=== PATIENT | female | born 1950 | race Asian ===

== ENCOUNTER 2017-09-25 07:31 | Day surgery (SDC) | payer OTHER, SELFPAY ==
[2017-09-25] VITALS (10 sets, daily range): BP systolic 69–177; BP diastolic 40–78; PULSE 54–65; RESP 10–18; TEMP 36.2–37.1; O2SAT 93–100; BMI 21.9
--- NOTE | 2017-09-25 | PATH_ITS ---
[facility] Accession Number: [id number] . 01 Material submitted: . PART A: DUODENUM PART B: ANTRUM PART C: GE JUNCTION . 02 Diagnosis: A. Duodenum, Biopsy: Duodenal mucosa with no diagnostic abnormality. Negative for active inflammation, features of sprue, dysplasia or malignancy. . B. Antrum, Biopsy: Gastric antral mucosa with features of reactive gastropathy. No evidence of Helicobacter organisms on H/E stain. Negative for intestinal metaplasia, dysplasia or malignancy. . C. Gastroesophageal Junction, Biopsy: Squamocolumnar junctional mucosa with focal specialized intestinal metaplasia; please see comment. Negative for dysplasia or malignancy. [facility]/09/26/2017 . 02 Comment: Part C) The findings in the gastroesophageal junction biopsy would be consistent with Patel's esophagus in the appropriate endoscopic setting. . 02 Electronically signed: . Wilfredo Maloney MD, PhD, Pathologist NPI- [id number] . 01 Gross description: . Received are three formalin-filled containers, each labeled with the patient's name: . A. In a container labeled duodenum, the specimen consists of a 0.2 cm portion of tissue, entirely submitted in cassette A. B. In a container labeled antrum, the specimen consists of two 0.2 cm portions of tissue, entirely submitted in cassette B. C. In a container labeled GE junction, the specimen consists of four 0.1-0.3 cm portions of tissue, entirely submitted in cassette C. ([id number]) /FRR . 02 Pathologist provided ICD-10: K22.70 . 02 CPT . 478808, 075190, [id number] Performed at: [address] [facility], [place] [id number] MD Rodri Bahena MD Phone: [phone] Performed at: 02 [facility] [address] [place] [id number] MD Tariq Christiansen MD Phone: [phone]
[2017-09-25] MEDS: SODIUM CHLORIDE 0.9% 1,000 ML 200 ML IV (08:52)
--- NOTE | 2017-09-25 09:07 | PM.PREOP ---
Pre-operative Note Interval Note Pre-op Check: History & Physical Reviewed by Physician ASA Class (for procedural sedation): II
[2017-09-25] MEDS: LIDOCAINE 4% SOLN 50 ML 20 ML TOP (09:17)
[2017-09-25] MEDS: TETRACAINE/BENZOCAINE/BUTAMBEN (CETACAINE) BOTTLE 1 SPRAY TOP (09:17)
[2017-09-25] MEDS: MIDAZOLAM 5 MG/5 ML VIAL IV (09:46)
[2017-09-25] MEDS: fentaNYL 250 MCG/5 ML INJ IV (09:46)
--- NOTE | 2017-09-25 10:04 | PM.OP.1 ---
Operative Date/Time/Diagnoses - Date of procedure: 09/25/17 Time of procedure: 10:06 Pre-op diagnosis: Worsening reflux symptoms Personal history of colon polyps Post-op diagnosis: same Procedure & Clinicians Procedure: Esophagogastroduodenoscopies with biopsies and colonoscopy to the cecum Same procedure as scheduled: Yes Indications: Last colonoscopy 12 years ago Surgeon: Jennifer Hagen Click Yes if Unassisted: Yes Anesthesia Type: Sedation (Fentanyl and Versed) Operative Notes Findings: 1. Normal duodenal mucosa 2. Mild antral gastritis 3. Incompetent GE junction with a 1 cm sliding hiatal hernia 4. GE junction at 39 cm from the incisors 5. Excellent prep 6. No polyps or mass lesions 7. No AV malformations 8. Mild diverticulitis noted at the junction of the descending and sigmoid colon 9. Grade 1 internal hemorrhoids Closure Type: not applicable Specimen(s): other (Cold forceps biopsies of the duodenum, antrum, and GE junction) Estimated Blood Loss (mL): 2 Procedure in detail: After obtaining informed consent, the patient was brought to the GI suite and placed in the left lateral decubitus position on the examination table. After placement of appropriate monitors, the patient was given incremental doses of Versed and Fentanyl until an appropriate level of sedation was achieved. A time out was held per SCOAP protocol. We began with EGD. A bite block was gently placed between the patient's teeth. The endoscope was lubricated and then passed into the patient's posterior oropharynx. The esophagus was cannulated under direct vision and the scope was passed to the second portion of the duodenum without difficulty. The scope was then withdrawn with careful examination of all areas of the upper GI tract and mucosa. In the stomach, the instrument was retroflexed and the GE junction examined. The scope was straightened and the procedure continued with examination of the remainder of the upper GI tract. Findings are noted above. Air was aspirated from the stomach and the endoscope gently removed from the esophagus. The examination table was turned and we continued with the colonoscopy. A digital rectal examination was performed and did not reveal any masses or obstructing lesions. The colonoscope was gently passed into the patient's anus and the entire colon navigated to the level of the cecum with minimal difficulty. Once in the cecum, the scope was withdrawn being sure to go before and beyond all mucosal folds and prominences and get an excellent examination. The findings are noted above. At the level of the rectal vault, the scope was retroflexed and the internal anal canal was examined. The scope was straightened and air aspirated from the colon. The instrument was removed from the patient's body and the procedure was concluded. The patient was allowed to awaken from sedation without difficulty and taken to the post-anesthesia care unit in good condition. Complications: none Condition: stable Disposition: PACU Plan for aftercare: 1. Discharge to home 2. We will contact you with pathology results and recommendations.
--- NOTE | 2017-09-25 11:24 | SUR.PHASEII ---
pt drowsy, no co's , friend at side at 102
--- NOTE | 2017-09-25 11:26 | SUR.PHASEII ---
pt awake , taking fliuds , no co's
== END 2017-09-25 11:50 ==
LOC: ENDO 07:32
PROVIDERS: Family Provider Physician Assistant; PCP Physician Assistant; Visit Provider Surgery
PROC: 0DJ08ZZ Inspection of Upper Intestinal Tract, Via Natural or Artificial Opening Endoscopic (ICD-10-PCS; CPT 43235; principal; 2017-09-25 08:45)
PROC: 0DJD8ZZ Inspection of Lower Intestinal Tract, Via Natural or Artificial Opening Endoscopic (ICD-10-PCS; CPT 45378; 2017-09-25 08:45)
DX: Z86.010 Personal history of colon polyps (principal); K21.9 Gastro-esophageal reflux disease without esophagitis; K22.70 Barrett's esophagus without dysplasia; K29.70 Gastritis, unspecified, without bleeding; K44.9 Diaphragmatic hernia without obstruction or gangrene; K57.30 Diverticulosis of large intestine without perforation or abscess without bleeding; K64.0 First degree hemorrhoids
CPT/HCPCS: 43239; 45378; J2250; J3010

== ENCOUNTER → 2018-01-08 11:03 | Outpatient (CLI) | payer OTHER, SELFPAY ==
[2018-01-08 12:38] LABS: Alanine Aminotransferase 24 IU/L (9-52); Albumin 4.4 g/dL (3.5-5.0); Albumin Globulin Ratio 1.4 (1.0-2.8); Alkaline Phosphatase 64 U/L (38-126); Aspartate Aminotransferase 20 IU/L (14-36); Bilirubin Total 0.9 mg/dL (0.2-1.3); Blood Urea Nitrogen 14 mg/dL (7-17); Calcium 9.1 mg/dL (8.4-10.2); Carbon Dioxide 30 mmol/L (22-32); Chloride 104 mmol/L (98-107); Cholesterol 201 mg/dL (140-199); Estimated Glomerular Filt Rate > 60.0 mL/min (>60); Globulin 3.1 g/dL (1.7-4.1); Glucose 89 mg/dL (80-110); HDL Cholesterol 70 mg/dL (40-60); HEMOLYSIS < 15 (0-50); LDL Cholesterol Calculated 116 mg/dL (<100); Potassium 4.2 mmol/L (3.4-5.1); Sodium 144 mmol/L (137-145); Total Protein 7.5 g/dL (6.3-8.2); Triglycerides 74 mg/dL (35-150)
[2018-01-08 12:46] LABS: Free T3, Triiodothyronine Free 2.95 pg/mL (2.77-5.27); Free T4, Direct Thyroxine 1.26 ng/dL (0.78-2.19)
[2018-01-08 12:59] LABS: Thyroid Stimulating Hormone 1.68 uIU/mL (0.47-4.68)
== END ==
PROVIDERS: PCP Physician Assistant; Visit Provider Physician Assistant
DX: E03.9 Hypothyroidism, unspecified (principal); E78.5 Hyperlipidemia, unspecified
CPT/HCPCS: 36415; 80053; 80061; 84439; 84443; 84481

== ENCOUNTER → 2018-01-19 10:42 | Outpatient (CLI) | payer OTHER, SELFPAY ==
--- NOTE | 2018-01-19 10:45 | DI.MG.S_ITS ---
BILATERAL DIGITAL SCREENING MAMMOGRAM 3D/2D WITH CAD: 01/19/2018 CLINICAL: Routine screening. Comparison is made to exams dated: 01/18/2016 mammogram, 01/08/2016 mammogram, and 03/03/2014 mammogram - [facility]. There are scattered fibroglandular elements in both breasts. Current study was also evaluated with a Computer Aided Detection (CAD) system. There are benign post operative findings in the right breast. No significant masses, calcifications, or other findings are seen in either breast. There has been no significant interval change. IMPRESSION: There is no mammographic evidence of malignancy. A 1 year screening mammogram is recommended.(01/20/2019) This exam was interpreted at Station ID: [id number]. NOTE: For mammograms, a report in lay terms will be sent to the patient. Approximately 15% of breast malignancies will not be visualized mammographically. In the management of a palpable breast mass, a negative mammogram must not discourage biopsy of a clinically suspicious lesion. Electronically Signed By: Lorelei dillon/chip:01/19/2018 13:22:33 letter sent: Normal Exam ACR BI-RADS Category 2: Benign Finding(s) 3342F
== END ==
PROVIDERS: Family Provider Physician Assistant; PCP Physician Assistant; Visit Provider Physician Assistant
DX: Z12.31 Encounter for screening mammogram for malignant neoplasm of breast (principal)
CPT/HCPCS: 77063; 77067

== ENCOUNTER → 2018-01-21 09:37 | Outpatient (CLI) | payer OTHER, SELFPAY ==
--- NOTE | 2018-01-21 09:38 | DI.RAD.S_ITS ---
This blank DEXA report has been sent in error by the PACS system. The correct and complete report will be forthcoming in 1-2 days. Thank you for your patience and understanding. Dictated by: Laurita Choi MD, PhD on 01/21/2018 at 11:13 Approved by: Laurita Choi MD, PhD on 01/21/2018 at 11:13
== END ==
PROVIDERS: PCP Physician Assistant; Visit Provider Physician Assistant
DX: M85.852 Other specified disorders of bone density and structure, left thigh (principal); Z78.0 Asymptomatic menopausal state; E28.39 Other primary ovarian failure; Z90.722 Acquired absence of ovaries, bilateral
CPT/HCPCS: 77080

== ENCOUNTER → 2018-02-24 11:21 | Outpatient (CLI) | payer OTHER, SELFPAY ==
[2018-02-24 14:56] LABS: Vitamin D 25 Hydroxy (D3) 17.2 ng/mL (30.0-100.0)
== END ==
PROVIDERS: PCP Physician Assistant; Visit Provider Physician Assistant
DX: M81.0 Age-related osteoporosis without current pathological fracture (principal); Z01.84 Encounter for antibody response examination
CPT/HCPCS: 36415; 82306; 86787

== ENCOUNTER → 2018-08-04 12:32 | Outpatient (CLI) | payer OTHER, SELFPAY ==
[2018-08-04 21:13] LABS: Vitamin D 25 Hydroxy (D3) 26.5 ng/mL (30.0-100.0)
== END ==
PROVIDERS: PCP Physician Assistant; Visit Provider Physician Assistant
DX: E55.9 Vitamin D deficiency, unspecified (principal); M81.0 Age-related osteoporosis without current pathological fracture
CPT/HCPCS: 82306

== ENCOUNTER → 2018-10-29 11:24 | Outpatient (CLI) | payer OTHER, SELFPAY ==
--- NOTE | 2018-10-29 11:26 | DI.RAD.S_ITS ---
PROCEDURE: XR WRIST RT MIN 3V INDICATIONS: Bony deformity on medial side of distal radius TECHNIQUE: 4 views of the wrist were acquired. COMPARISON: None. FINDINGS: Bones: No fractures or dislocations. No suspicious bony lesions. There is mild degenerative joint disease at the triscaphe joint and first carpometacarpal joint. Scaphoid view: Scaphoid appears intact. Soft tissues: No suspicious soft tissue calcifications. IMPRESSION: No acute bony abnormalities. Mild degenerative disease. Dictated by: Bridget Main M.D. on 10/29/2018 at 17:33 Approved by: Bridget Main M.D. on 10/29/2018 at 17:36
[2018-10-29 13:35] LABS: Alanine Aminotransferase 21 IU/L (9-52); Albumin 4.5 g/dL (3.5-5.0); Albumin Globulin Ratio 1.5 (1.0-2.8); Alkaline Phosphatase 67 U/L (38-126); Aspartate Aminotransferase 20 IU/L (14-36); Bilirubin Total 0.7 mg/dL (0.2-1.3); Blood Urea Nitrogen 15 mg/dL (7-17); Calcium 9.6 mg/dL (8.4-10.2); Carbon Dioxide 29 mmol/L (22-32); Chloride 103 mmol/L (98-107); Cholesterol 241 mg/dL (140-199); Estimated Glomerular Filt Rate > 60.0 mL/min (>60); Glucose 92 mg/dL (80-110); HDL Cholesterol 72 mg/dL (40-60); HEMOLYSIS < 15 (0-50); LDL Cholesterol Calculated 146 mg/dL (<100); Potassium 4.5 mmol/L (3.4-5.1); Sodium 142 mmol/L (137-145); Total Protein 7.5 g/dL (6.3-8.2); Triglycerides 114 mg/dL (35-150)
[2018-10-29 13:59] LABS: Thyroid Stimulating Hormone 2.12 uIU/mL (0.47-4.68)
[2018-10-29 14:24] LABS: Vitamin B12 781 pg/mL (239-931)
== END ==
PROVIDERS: PCP Physician Assistant; Visit Provider Physician Assistant
DX: R22.31 Localized swelling, mass and lump, right upper limb (principal); E78.5 Hyperlipidemia, unspecified; M81.0 Age-related osteoporosis without current pathological fracture; R63.4 Abnormal weight loss; K21.9 Gastro-esophageal reflux disease without esophagitis; R26.89 Other abnormalities of gait and mobility
CPT/HCPCS: 36415; 73110; 80053; 80061; 82607; 84443

== ENCOUNTER → 2018-11-17 15:11 | Outpatient (CLI) | payer OTHER, SELFPAY ==
--- NOTE | 2018-11-17 15:14 | DI.RAD.S_ITS ---
PROCEDURE: XR KNEE RT 3V INDICATIONS: Right knee pain TECHNIQUE: 3 views of the knee were acquired. COMPARISON: [facility], , KNEE 3V LEFT, 12/03/2010, 10:28. FINDINGS: Bones: No fractures or dislocations. No suspicious bony lesions. An enthesophyte at the quadriceps tendon insertion is noted. Soft tissues: No joint effusion. No suspicious soft tissue calcifications. IMPRESSION: No acute osseous abnormality of the right knee. Dictated by: Kings Mccoy M.D. on 11/17/2018 at 14:46 Approved by: Kings Mccoy M.D. on 11/17/2018 at 14:49
[2018-11-17 16:55] LABS: D Dimer 1980 ng/mL (<230)
== END ==
PROVIDERS: PCP Physician Assistant; Visit Provider Physician Assistant
DX: M25.561 Pain in right knee (principal); R60.0 Localized edema
CPT/HCPCS: 73562; 85379

== ENCOUNTER 2018-11-17 17:32 | Emergency (ER) | payer OTHER, SELFPAY ==
[2018-11-17 17:33] VITALS: BP 153/73; PULSE 86; RESP 14; TEMP 37.4; O2SAT 97; BMI 20.1
--- NOTE | 2018-11-17 17:45 | DI.US.S_ITS ---
PROCEDURE: US PERIPH VENOUS LOW EXTREM RT INDICATIONS: R popiteal pain and swelling x 4 months. elevated D-dimer TECHNIQUE: Real-time imaging, as well as color and pulse Doppler interrogation, were performed of the lower extremity deep veins from the inguinal ligament to the popliteal fossa. COMPARISON: None. FINDINGS: The common femoral, femoral and popliteal veins are normally compressible, and free of intraluminal thrombus. Color and pulse Doppler demonstrate normal phasic intraluminal flow. There is normal augmentation response to distal compression maneuver. IMPRESSION: No deep venous thrombosis in the right lower extremity. Dictated by: Bridget Main M.D. on 11/17/2018 at 19:09 Approved by: Bridget Main M.D. on 11/17/2018 at 19:10
--- NOTE | 2018-11-17 18:02 | ED.LOWEXIN ---
HPI - Extremity Injury (Lower) <KATHRYN Oropeza - Last Filed: 11/17/18 21:33> General Chief Complaint: Extremity Injury, Lower Stated Complaint: ABNORMAL LABS Time Seen by Provider: 11/17/18 17:35 Source: patient Mode of arrival: ambulatory Limitations: no limitations History of Present Illness HPI Narrative: 68-year-old healthy female presents emergency department today after being referred from the walk-in clinic for an elevated D-dimer. She states she presented to the walk-in clinic for right knee pain that has increased over the past few days, this initially started from a fall to her knee in August when her dog was attacked. She states her knee has been sore for a while but today it has been increasingly worse, she describes her pain as a 8/10 dull pain that is worse with bending her knee and worse with walking. She denies any fevers, chills, chest pain, shortness of breath, palpitations, abdominal pain, nausea, vomiting, or significant swelling. She denies any recent long trips or recent flights. She denies any history of blood clots. Related Data Home Medications Medication Instructions Recorded Confirmed Calcium/Vitamin D3 Gummies 2 ea PO DAILY 10/29/18 11/17/18 Red Yeast Rice 1 tab PO DAILY 10/29/18 11/17/18 ranitidine 150 mg tablet 150 mg PO DAILY PRN 10/29/18 11/17/18 turmeric 400 mg capsule 400 mg PO DAILY cap 10/29/18 11/17/18 Allergies Allergy/AdvReac Type Severity Reaction Status Date / Time ciprofloxacin [From CIPRO] Allergy Mild red ears Verified 11/17/18 17:41 iodine [IODINE] Allergy Mild itch Verified 11/17/18 17:41 Sulfa (Sulfonamide Allergy Mild red ears Verified 11/17/18 17:41 Antibiotics) [SULFA (SULFONAMIDE ANTIBIOTICS)] Penicillins Allergy Unknown Verified 11/17/18 17:41 ibuprofen [IBUPROFEN] AdvReac Severe CHEST PAIN Verified 11/17/18 17:41 aspirin AdvReac Intermediate Upset Verified 11/17/18 17:41 stomach Review of Systems <KATHRYN Oropeza - Last Filed: 11/17/18 21:33> Review of Systems REVIEW OF SYSTEMS: GENERAL: Denies fever or chills. HENT: No head trauma. EYES: No double vision or vision loss. CARDIOVASCULAR: No chest pain or syncope. RESPIRATORY: No shortness of breath or cough. GASTROINTESTINAL: No nausea, vomiting, diarrhea, or constipation. GENITOURINARY: No flank pain or dysuria. MUSCULOSKELETAL: Complains of left knee pain, see HPI. INTEGUMENTARY: No rash, lesions, or pruritus. NEURO: No numbness, tingling. PSYCH: No behavior or mood changes. PFSH <KATHRYN Oropeza - Last Filed: 11/17/18 21:33> Medical History Chronic back pain (Chronic) Chronic back pain (Chronic) Gastroparesis (Chronic) Gastroparesis (Chronic) Hyperlipemia (Chronic) Hyperlipemia (Chronic) Carpal tunnel syndrome (Resolved) Carpal tunnel syndrome (Resolved) Cataracts, bilateral (Resolved 2013) Cataracts, bilateral (Resolved 2013) Colon polyps (Resolved 11/2010) Colon polyps (Resolved 11/2010) Fibroids (Resolved ~1997) Fibroids (Resolved ~1997) Surgical History History of back surgery (Resolved) History of back surgery (Resolved) Hx of blepharoplasty (Resolved 2015) Hx of blepharoplasty (Resolved 2015) Hx of breast surgery (Resolved) Hx of breast surgery (Resolved) Hx of cataract surgery (Resolved ~2014) Hx of cataract surgery (Resolved ~2014) Hx of removal of cyst (Resolved) Hx of removal of cyst (Resolved) History of carpal tunnel repair Status post appendectomy Status post hysterectomy Status post knee surgery Family History (System 01/21/18 @ 13:11 by Shobha Castillo) Father Diabetes mellitus Heart disease Hypertension Grandmother Diabetes mellitus Mother Age: 87 Heart disease Hypertension High cholesterol Stomach problems Pacemaker Grandmother Heart disease Sister Age: 67 Cancer Hypertension High cholesterol Sister Age: 60 Knee problem Social History (System 01/21/18 @ 13:11 by Shobha Castillo) household members: none Smoking Status: Never smoker second hand exposure: No alcohol intake: never substance use type: does not use Family History Father Diabetes mellitus Heart disease Hypertension Grandmother Diabetes mellitus Mother Age: 87 Heart disease Hypertension High cholesterol Stomach problems Pacemaker Grandmother Heart disease Sister Age: 67 Cancer Hypertension High cholesterol Sister Age: 60 Knee problem Social History household members: none Smoking Status: Never smoker second hand exposure: No alcohol intake: never substance use type: does not use Exam <KATHRYN Oropeza - Last Filed: 11/17/18 21:33> Initial Vital Signs Initial Vital Signs: Vital Signs Temperature 99.3 F 11/17/18 17:33 Pulse Rate 86 11/17/18 17:33 Respiratory Rate 14 11/17/18 17:33 Blood Pressure 153/73 H 11/17/18 17:33 Pulse Oximetry 97 11/17/18 17:33 PHYSICAL EXAMINATION: GENERAL: Well groomed, alert, and cooperative. Answers questions promptly and appropriately. Vital signs noted. HENT: Normocephalic, atraumatic. EYES: Symmetrical, sclera white, no periorbital swelling. CARDIOVASCULAR: S1 and S2 sounds normal. Regular rate and rhythm, no murmurs, clicks, or bruits. No pedal edema. RESPIRATORY: Normal respiratory rate, trachea midline, airway patent. No stridor, nasal flaring or accessory muscle use. Lungs are clear in all cantrell. MUSCULOSKELETAL: Slight tenderness to popliteal region of knee with palpation, no calf tenderness, negative Holmanns sign. Slight effusion to right knee without increased warmth. No erythema, induration, mass, or ecchymosis noted. Equal strength to lower extremities, full range of motion present. Normal gait and coordination. Equal tone and mass bilaterally. No spinal tenderness or deformities. EXTREMITIES: CMS intact. No pedal edema. SKIN: Warm, dry, soft, appropriate color for ethnicity. No lesions, rashes, or wounds. NEURO: Alert and Oriented X 3. No sensory deficits. PSYCH: Appropriate affect and mood. <Asif Lemus DO - Last Filed: 11/17/18 21:35> Initial Vital Signs Initial Vital Signs: Vital Signs Temperature 99.3 F 11/17/18 17:33 Pulse Rate 86 11/17/18 17:33 Respiratory Rate 14 11/17/18 17:33 Blood Pressure 153/73 H 11/17/18 17:33 Pulse Oximetry 97 11/17/18 17:33 Course <KATHRYN Oropeza - Last Filed: 11/17/18 21:33> Orders Ordered: ED Orders 11/17/18 17:45 US periph venous low extrem rt Stat Vital Signs - 8 hr 11/17/18 17:33 Temperature 99.3 F Pulse Rate 86 Respiratory Rate 14 Blood Pressure 153/73 H Pulse Oximetry 97 <Asif MariahDO - Last Filed: 11/17/18 21:35> Orders Ordered: ED Orders 11/17/18 17:45 US periph venous low extrem rt Stat Vital Signs - 8 hr 11/17/18 17:33 Temperature 99.3 F Pulse Rate 86 Respiratory Rate 14 Blood Pressure 153/73 H Pulse Oximetry 97 MDM - Extremity Injury (Lower) <KATHRYN Oropeza - Last Filed: 11/17/18 21:33> Medical Records Attestation: I reviewed the patient's medical records. Lab Data Attestation: I reviewed the patient's lab results. Imaging Data RLE US: Radiologist's impression: [place] [address] Ultrasound Report Signed Patient: Rosario Reyes OMR#: [id number] : 1950Acct:[id number] Age/Sex: 68 / FDate of Service: 11/17/18 Loc: ED Accession Number: [id number] Procedure: US periph venous low extrem rt Ordering Provider: Fadia Hidalgo PROCEDURE: US PERIPH VENOUS LOW EXTREM RT INDICATIONS: R popiteal pain and swelling x 4 months. elevated D-dimer TECHNIQUE: Real-time imaging, as well as color and pulse Doppler interrogation, were performed of the lower extremity deep veins from the inguinal ligament to the popliteal fossa. COMPARISON: None. FINDINGS: The common femoral, femoral and popliteal veins are normally compressible, and free of intraluminal thrombus. Color and pulse Doppler demonstrate normal phasic intraluminal flow. There is normal augmentation response to distal compression maneuver. IMPRESSION: No deep venous thrombosis in the right lower extremity. Dictated by: Bridget Main M.D. on 11/17/2018 at 19:09 Approved by: Bridget Main M.D. on 11/17/2018 at 19:10 [facility] Narrative Medical decision making narrative: Differential includes knee strain (most likely due to mechanism of injury, slight joint effusion without erythema, negative x-ray in the walk-in clinic), DVT (less likely while patient has had a positive D-dimer she had a negative ultrasound showing no DVT), cellulitis/ septic join (less likely due to lack of presentation of erythema, systemic symptoms, and history of trauma). While patient's D-dimer was elevated do not suspect that she has a PE due to lack of chest pain, shortness of breath, tachycardia, hypoxia, or history of long trips. Strict return precautions given and follow-up instructions discussed. It is possible that the D-dimer is elevated due to inflammation in her knee. Discharge Plan Departure Patient Disposition: Home Clinical Impression: Acute pain of right knee Discharge Date/Time: 11/17/18 19:32 Interventions: ED Discharge Assessment Last Done: 11/17/18 19:31 Instructions: DI for Knee Pain Activity Restrictions/Additional Instructions: Thank you for entrusting me with your care today. As discussed, he did not have a blood clot or a Enrique's cyst according to your ultrasound. I suspect her symptoms are due to a soft tissue injury. Please use the Sotero wrap to decrease swelling and pain. Follow up with her primary care provider in the next few weeks if needed. Return to the emergency department if he develops chest pain, shortness of breath, arrhythmias, high fevers, or syncope. Prescriptions: No Action Calcium/Vitamin D3 Gummies 2 ea PO DAILY RF: 0 ranitidine HCl 150 mg tablet 150 mg PO DAILY PRN (Reason: as directed) RF: 0 turmeric 400 mg capsule 400 mg PO DAILY RF: 0 Red Yeast Rice 1 tab PO DAILY RF: 0 Referrals: Cally Hayes PA-C [Primary Care Provider] - <Asif Lemus DO - Last Filed: 11/17/18 21:35> Cosign ED Attending Teaature Attestation: I was available for consultation during this patient's emergency department encounter
== END 2018-11-17 19:32 | disposition home or self-care (01) ==
PROVIDERS: Emergency Provider Nurse Practitioner; Family Provider Physician Assistant; PCP Physician Assistant
DX: M25.561 Pain in right knee (principal); R60.0 Localized edema
CPT/HCPCS: 73562; 85379; 93971; 99282; 99283

== ENCOUNTER → 2018-11-25 09:59 | Outpatient (CLI) | payer OTHER, SELFPAY ==
--- NOTE | 2018-11-25 10:00 | DI.MRI.S_ITS ---
PROCEDURE: MR KNEE RT WO CON INDICATIONS: Right knee pain due to fall TECHNIQUE: Noncontrast sagittal PD fast spin echo and T2 fast spin echo with fat saturation, sagittal 3-D FLASH with fat saturation; coronal T1 spin echo and PD fast spin echo with fat saturation, and axial PD fast spin echo with fat saturation through the knee. COMPARISON: None. FINDINGS: Image quality: Excellent. Menisci: There is no evidence of focal medial or lateral meniscal tear. Myxoid degenerative changes in posterior horn of medial meniscus is seen. There is suggestion of torn posterior medial meniscal root ligament. The lateral meniscal root ligament appears intact. Cruciate ligaments: The anterior and posterior cruciate ligaments appear intact. Medial structures: Low to moderate grade MCL sprain is seen. The posterior oblique ligament, semimembranosus tendon insertions, oblique popliteal ligament, and meniscocapsular junction appear intact. Visualized portions of the pes anserinus tendons appear normal. No abnormal bursal fluid. Lateral structures: The lateral collateral ligament, long and short heads of the biceps femoris tendon appear intact. The popliteus tendon appears normal; the popliteofibular ligament appears intact. The posterosuperior and anteroinferior popliteomeniscal fascicles appear intact. The arcuate and fabellofibular ligaments appear intact, on either side of the lateral inferior geniculate artery. Iliotibial band appears normal. Anterior structures: The quadriceps and patellar tendons appear intact. Patellar alignment is normal. No femoral trochlear dysplasia or ventral trochlear prominence. No edema in the infrapatellar fat pad. Bones and cartilage: No bone marrow contusions or fractures. Medial and lateral femoral tibial compartment joint space narrowing and low-grade chondromalacia is seen. Patella cartilage is intact. Joint space: There is small to moderate amount of joint fluid, no gross loose body. No Enrique's cyst. Normal appearing synovial plicae are incidentally noted. IMPRESSION: 1. Suggestion of torn posterior medial meniscal root ligament. Signal abnormality involving posterior horn of medial meniscus which does not extend to articular surface to meet the criteria for meniscal tear. No evidence of lateral meniscal tear. 2. Patient ligaments are intact. Low to moderate grade MCL sprain. 3. 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 Small to moderate joint effusion. No gross loose body. Dictated by: Wellington Faustin M.D. on 11/25/2018 at 10:22 Approved by: Wellington Faustin M.D. on 11/25/2018 at 10:33
== END ==
PROVIDERS: Family Provider Physician Assistant; PCP Physician Assistant; Visit Provider Physician Assistant
DX: M25.561 Pain in right knee (principal); S83.411A Sprain of medial collateral ligament of right knee, initial encounter; M17.11 Unilateral primary osteoarthritis, right knee; M25.461 Effusion, right knee
CPT/HCPCS: 73721

== ENCOUNTER → 2018-12-09 08:55 | Outpatient (CLI) | payer OTHER, SELFPAY ==
--- NOTE | 2018-12-09 08:56 | DI.RAD.S_ITS ---
PROCEDURE: XR CERVICAL SPINE 2V OR 3V INDICATIONS: Cervical pain with radiculopathy TECHNIQUE: 3 view(s) of the cervical spine were acquired. COMPARISON: None. FINDINGS: Bones: No fractures or dislocations to the C7 level. The lateral masses of C1 appear intact on the odontoid view. No suspicious bony lesions. Mild multilevel degenerative changes of the cervical spine noted as evidenced by osteophyte formation and multilevel disc space height loss. Soft tissues: No prevertebral soft tissue swelling. IMPRESSION: Mild multilevel degenerative changes of the cervical spine. Dictated by: Sanchez Villa M.D. on 12/09/2018 at 12:59 Approved by: Sanchez Villa M.D. on 12/09/2018 at 13:01
== END ==
PROVIDERS: Family Provider Physician Assistant; PCP Physician Assistant; Visit Provider Physician Assistant
DX: M54.12 Radiculopathy, cervical region (principal)
CPT/HCPCS: 72040

== ENCOUNTER → 2018-12-28 10:45 | Outpatient (CLI) | payer OTHER, SELFPAY | PROVIDERS: Family Provider Physician Assistant; PCP Physician Assistant; Visit Provider Physician Assistant | DX: R30.0 Dysuria (principal) | CPT/HCPCS: 87086 ==

== ENCOUNTER → 2018-12-30 12:28 | Outpatient (CLI) | payer OTHER, SELFPAY ==
[2018-12-30 15:44] LABS: Bacteria Urine None Seen; WBC Urine None Seen (0-5/HPF)
[2018-12-30 15:52] LABS: Appearance Urine UA CLEAR; Bilirubin Urine UA NEGATIVE (NEGATIVE); Color Urine UA YELLOW; Glucose Urine UA NEGATIVE (Negative); Ketones Urine UA NEGATIVE (NEGATIVE); Leukocyte Esterase Urine UA NEGATIVE (NEGATIVE); Nitrite Urine UA NEGATIVE (Negative); Occult Blood Urine UA 1+ (Negative); Protein Urine UA NEGATIVE (Negative); Specific Gravity Urine UA <=1.005 (1.000-1.035); Urobilinogen Urine UA 0.2 E.U./dL (0.2)
[2018-12-30 16:01] LABS: Culture Indicated Urine Cult Not Indicated; RBC Urine 0-1/HPF (0-5/HPF); Squamous Epithelial Cell Urine 0-1 /HPF (0-5/HPF)
== END ==
PROVIDERS: Family Provider Physician Assistant; PCP Physician Assistant; Visit Provider Hospitalist
DX: R31.9 Hematuria, unspecified (principal)
CPT/HCPCS: 81001

== ENCOUNTER → 2018-12-31 15:11 | Outpatient (CLI) | payer OTHER, SELFPAY ==
[2018-12-31 15:45] LABS: Add Manual Diff / Slide Review NO; Basophils Absolute Auto 0 /uL (0-100); Basophils Percent Auto 0.6 % (0-2); Eosinophils Absolute Auto 100 /uL (0-450); Eosinophils Percent Auto 1.8 % (2-4); Hematocrit 41.5 % (36-46); Hemoglobin 14.2 g/dL (12.0-16.0); Lymphocytes Absolute Auto 1500 /uL (1100-4500); Lymphocytes Percent Auto 24.1 % (25-40); Mean Corpuscular HGB Conc 34.2 % (30-36); Mean Corpuscular Hemoglobin 32.5 PG (26-34); Mean Corpuscular Volume 94.8 fL (80-100); Monocytes Absolute Auto 300 /uL (0-900); Monocytes Percent Auto 4.9 % (3-14); Neutrophils Absolute Auto 4200 /uL (1500-7000); Neutrophils Percent Auto 68.6 % (50-75); Platelet Count 192 X10^3/uL (150-400); Red Blood Cell Count 4.38 X10^6/uL (4.0-5.2); Red Cell Distribution Width 13.4 % (11.6-14.8); White Blood Cell Count 6.2 X10^3/uL (4.5-11.0)
[2018-12-31 16:25] LABS: Alanine Aminotransferase 24 IU/L (9-52); Albumin 4.3 g/dL (3.5-5.0); Albumin Globulin Ratio 1.5 (1.0-2.8); Alkaline Phosphatase 61 U/L (38-126); Aspartate Aminotransferase 20 IU/L (14-36); Bilirubin Total 0.6 mg/dL (0.2-1.3); Blood Urea Nitrogen 20 mg/dL (7-17); Calcium 9.8 mg/dL (8.4-10.2); Carbon Dioxide 26 mmol/L (22-32); Chloride 102 mmol/L (98-107); Estimated Glomerular Filt Rate > 60.0 mL/min (>60); Globulin 2.8 g/dL (1.7-4.1); Glucose 134 mg/dL (80-110); HEMOLYSIS < 15 (0-50); Lactate Dehydrogenase 435 U/L (313-618); Potassium 3.9 mmol/L (3.4-5.1); Sodium 140 mmol/L (137-145); Total Protein 7.1 g/dL (6.3-8.2)
[2019-01-02 14:31] LABS: Haptoglobin 161 mg/dL (43-212)
== END ==
PROVIDERS: Family Provider Physician Assistant; PCP Physician Assistant; Visit Provider Hospitalist
DX: R31.29 Other microscopic hematuria (principal)
CPT/HCPCS: 36415; 80053; 83010; 83615; 85025

== ENCOUNTER → 2019-02-04 10:52 | Outpatient (CLI) | payer OTHER, SELFPAY ==
--- NOTE | 2019-02-04 | DI.MG.S_ITS ---
BILATERAL DIGITAL SCREENING MAMMOGRAM 3D/2D WITH CAD: 02/04/2019 CLINICAL: Routine screening. Comparison is made to exams dated: 01/19/2018 mammogram, 01/18/2016 mammogram, 01/08/2016 mammogram, and 03/03/2014 mammogram - [facility]. The tissue of both breasts is heterogeneously dense. This may lower the sensitivity of mammography. Current study was also evaluated with a Computer Aided Detection (CAD) system. There is a 0.6 cm oval equal density asymmetry with an indistinct margin in the left breast middle depth central to the nipple seen on the mediolateral oblique view only. No other significant masses, calcifications, or other findings are seen in either breast. IMPRESSION: INCOMPLETE: NEEDS ADDITIONAL IMAGING EVALUATION The 0.6 cm oval equal density asymmetry in the left breast is indeterminate. Mediolateral and spot compression views as well as additional views with possible ultrasound are recommended. This exam was interpreted at Station ID: [id number]. NOTE: For mammograms, a report in lay terms will be sent to the patient. Approximately 15% of breast malignancies will not be visualized mammographically. In the management of a palpable breast mass, a negative mammogram must not discourage biopsy of a clinically suspicious lesion. Electronically Signed By: Rodri park/chip:02/04/2019 15:25:13 letter sent: Additional Imaging Needed ACR BI-RADS Category 0: Incomplete 3340F
== END ==
PROVIDERS: Family Provider Physician Assistant; PCP Physician Assistant; Visit Provider Physician Assistant
DX: Z12.31 Encounter for screening mammogram for malignant neoplasm of breast (principal)
CPT/HCPCS: 77063; 77067

== ENCOUNTER → 2019-02-22 12:19 | Outpatient (CLI) | payer OTHER, SELFPAY ==
--- NOTE | 2019-02-22 | DI.MG.S_ITS ---
UNILATERAL LEFT DIGITAL DIAGNOSTIC MAMMOGRAM 3D/2D WITH ADDITIONAL VIEWS: 02/22/2019 CLINICAL: Additional evaluation requested from prior study. Comparison is made to exams dated: 02/04/2019 mammogram, 01/19/2018 mammogram, and 01/18/2016 mammogram, and 03/03/2014 and 10/16/2010 mammograms - [facility]. The tissue of left breast is heterogeneously dense. This may lower the sensitivity of mammography. The oval equal density asymmetry with an indistinct margin in the left breast middle depth central to the nipple seen on the mediolateral oblique view only is no longer visualized and likely represents fibroglandular tissue. It appears similar to mammogram dated 03/03/2014. No other significant masses or calcifications are seen in the breast. IMPRESSION: There is no mammographic evidence of malignancy. A 1 year screening mammogram is recommended. This exam was interpreted at Station ID: [id number]. NOTE: For mammograms, a report in lay terms will be sent to the patient. Approximately 15% of breast malignancies will not be visualized mammographically. In the management of a palpable breast mass, a negative mammogram must not discourage biopsy of a clinically suspicious lesion. Electronically Signed By: Helio Cleary M.D. aty/:02/22/2019 13:53:36 letter sent: Normal Exam ACR BI-RADS Category 2: Benign Finding(s) 3342F
== END ==
PROVIDERS: Family Provider Physician Assistant; PCP Physician Assistant; Visit Provider Physician Assistant
DX: R92.8 Other abnormal and inconclusive findings on diagnostic imaging of breast (principal); N64.89 Other specified disorders of breast
CPT/HCPCS: 77065; G0279

== ENCOUNTER → 2019-04-03 14:00 | Outpatient (CLI) | payer OTHER, SELFPAY | PROVIDERS: Family Provider Physician Assistant; PCP Physician Assistant; Visit Provider Nurse Practitioner | DX: R30.0 Dysuria (principal) | CPT/HCPCS: 87086 ==

== ENCOUNTER → 2019-04-16 12:09 | Outpatient (CLI) | payer OTHER, SELFPAY ==
[2019-04-16 14:21] LABS: Blood Urea Nitrogen 14 mg/dL (7-17); Calcium 9.3 mg/dL (8.4-10.2); Carbon Dioxide 30 mmol/L (22-32); Chloride 103 mmol/L (98-107); Estimated Glomerular Filt Rate > 60.0 mL/min (>60); Glucose 92 mg/dL (80-110); HEMOLYSIS < 15 (0-50); Potassium 4.1 mmol/L (3.4-5.1); Sodium 140 mmol/L (137-145)
== END ==
PROVIDERS: PCP Physician Assistant; Visit Provider Specialist
DX: R31.0 Gross hematuria (principal)
CPT/HCPCS: 36415; 80048

== ENCOUNTER → 2019-04-19 10:23 | Outpatient (CLI) | payer OTHER, SELFPAY ==
--- NOTE | 2019-04-19 10:29 | DI.CT.S_ITS ---
PROCEDURE: CT ABDOMEN PELVIS WO/W CON INDICATIONS: HEMATURIA TECHNIQUE: Optional 5 mm thick noncontrast images acquired from the diaphragm to the symphysis pubis. After the administration of intravenous contrast, 5 mm thick images acquired from the diaphragm to the symphysis pubis after a 10-minute delay. 2 mm thick coronal and sagittal reformats were then performed of the kidneys and ureters. For radiation dose reduction, the following was used: automated exposure control, adjustment of mA and/or kV according to patient size. COMPARISON: None. FINDINGS: Image quality: Excellent. Lung bases: Lung bases are clear. Heart size is normal. Urinary system: Both kidneys are normal in size, without hydronephrosis or nephrolithiasis on pre-contrast images. No perinephric fat stranding. There is normal bilateral renal enhancement. No solid renal mass. Renal calyces appear normal in morphology when filled with contrast. Opacified portions of both ureters demonstrate normal caliber. Mild tortuosity in the proximal left ureter. No ureteral filling defect identified. Bladder wall thickness is normal. No calcified bladder stones. Bladder is only partially distended. Other solid organs: Liver is normal in size and enhancement. Well-circumscribed irregular small hyperdense foci in the liver are have the appearance of benign hemangioma or cysts. Gallbladder is unremarkable. Biliary system is non dilated. Pancreas enhances normally. Spleen is normal in size and enhancement. No adrenal nodules. Peritoneum and bowel: Bowel loops demonstrate normal wall thickness and caliber. No free fluid or air. Nodes and vessels: No retroperitoneal or mesenteric adenopathy by size criteria. Aorta and inferior vena cava are normal in size. Abdominal wall: No ventral hernias. Pelvis: No pathologic free pelvic fluid. No inguinal hernias or adenopathy. Bones: No suspicious bony lesions. No vertebral body compression fractures. DDD. IMPRESSION: No upper urinary tract filling defect identified. No solid renal mass. No kidney stone. Dictated by: Ned Garcia M.D. on 04/19/2019 at 12:22 Approved by: Ned Garcia M.D. on 04/19/2019 at 12:29
== END ==
PROVIDERS: PCP Physician Assistant; Visit Provider Specialist
DX: R31.9 Hematuria, unspecified (principal)
CPT/HCPCS: 74178; Q9967

== ENCOUNTER → 2019-05-20 10:06 | Outpatient (CLI) | payer MEDICARE, OTHER, SELFPAY ==
--- NOTE | 2019-05-20 10:08 | DI.US.S_ITS ---
PROCEDURE: US THYROID INDICATIONS: NECK MASS TECHNIQUE: Real-time scanning was performed of the thyroid gland, with image documentation. COMPARISON: None. FINDINGS: Right: Thyroid lobe measures 5.3 x 1.8 x 1.6 cm, and is homogeneous in echotexture. Left: Thyroid lobe measures 6 x 2.9 x 3 cm, and is homogenous in echotexture. Isthmus: 6 mm thick. Nodule number: 1 Location: Left inferior. Corresponding to the palpable abnormality. Size: 3.1 x 2.5 x 2.7 cm. Composition: Predominantly cystic Echogenicity: Hypoechoic Shape: wider than tall. Margins: Smooth Echogenic foci: Punctate Total points: 6 ACR TI-RADS category: TR 4, moderately suspicious Nodule number: 2 Location: Left isthmus Size: 1.4 x 0.6 x 1.1 cm. Composition: Solid Echogenicity: Hypoechoic Shape: wider than tall. Margins: Smooth Echogenic foci: None Total points: 4 ACR TI-RADS category: TR 4, moderately suspicious Nodule number: 3 Location: Right superior medial Size: 1.5 x 1.2 x 1.2 cm. Composition: Predominantly solid Echogenicity: Hypoechoic Shape: wider than tall. Margins: Smooth Echogenic foci: None Total points: 4 ACR TI-RADS category: TR 4, moderately suspicious Nodule number: 4 Location: Right inferior Size: 2.1 x 1.4 x 1.4 cm. Composition: Solid Echogenicity: Hypoechoic Shape: wider than tall. Margins: Smooth Echogenic foci: None Total points: 4 ACR TI-RADS category: TR 4, moderately suspicious Nodule number: 5 Location: Right superior lateral Size: 1.6 x 1 x 1.3 cm. Composition: Spongiform Echogenicity: Hypoechoic Shape: wider than tall. Margins: Smooth Echogenic foci: None Total points: 2 ACR TI-RADS category: TR 2, not suspicious. IMPRESSION: A few TR 4 moderately suspicious thyroid nodules greater than 1.5 cm. Recommend FNA of the largest/most suspicious two nodules #1 and #4. Otherwise followup ultrasound in one year recommended. ACR TI-RADS definitions and recommendations: TI-RADS 1 (benign): 0 points. FNA not needed. TI-RADS 2 (not suspicious): 2 points. FNA not needed. TI-RADS 3 (mildly suspicious): 3 points. * FNA if 2.5 cm or larger, follow up if 1.5 cm or larger (at 1, 3, and 5 years). TI-RADS 4 (moderately suspicious): 4-6 points. * FNA if 1.5 cm or larger, follow up if 1 cm or larger (at 1, 2, 3, and 5 years). TI-RADS 5 (highly suspicious): 7 points or more. * FNA if 1 cm or larger, follow up if 0.5 cm or larger (every year for 5 years). Dictated by: Ned Garcia M.D. on 05/20/2019 at 12:44 Approved by: Ned Garcia M.D. on 05/20/2019 at 12:59
== END ==
PROVIDERS: PCP Physician Assistant; Visit Provider Physician Assistant
DX: E04.2 Nontoxic multinodular goiter (principal)
CPT/HCPCS: 76536

== ENCOUNTER → 2019-06-09 08:50 | Outpatient (CLI) | payer MEDICARE, OTHER, SELFPAY ==
--- NOTE | 2019-06-09 | PATH_ITS ---
Note [facility] Accession Number: [id number] TESTS RESULT FLAG UNITS REF RANGE LAB Clinician Provided Cytology Information No. of containers..01 Other (Miscellaneous) No. of containers..00 Previously Prepared Cytology Slide LEFT THYROID NODULE DIAGNOSIS: LEFT THYROID NODULE INADEQUATE, INSUFFICIENT CELLS FOR STUDY. [place] CATEGORY I. NONDIAGNOSTIC: CYST FLUID ONLY. Pathologist ICD10: 02 E04.1 02 Josephine Lockwood MD, Pathologist NPI- [id number] Jesus Diaz, Night Stocker ([facility]) 01 30 CC, PHONG BENÍTEZ RECIEVED: 5 ALCOHOL FIXED AND 5 QUICK STAINED SLIDES WITH 1 RNA VIAL FOR FURTHER TESTING. /[facility] 06/10/2019 0906 Local FLAG LEGEND: L-Low Normal,H-High Normal,LL-Alert Low,HH-Alert High <-Panic Low,>-Panic High,A-Abnormal,AA-Critical Abnormal Performed at: 01 =Z [facility] [address], [place] [address] Rodri Bahena MD, 02 [facility] [address] [place] [id number] Alicia Vásquez MD, Performed at: 01 [facility] [address], [place], [place] [id number] MD Rodri Bahena MD Phone: [phone]
--- NOTE | 2019-06-09 | PATH_ITS ---
Note [facility] Accession Number: [id number] TESTS RESULT FLAG UNITS REF RANGE LAB Clinician Provided Cytology Information No. of containers..01 Other (Miscellaneous) No. of containers..08 Previously Prepared Cytology Slide RIGHT THYROID NODULE DIAGNOSIS: 02 RIGHT THYROID NODULE NEGATIVE FOR MALIGNANT CELLS. SCANT FOLLICULAR CELLS, SCATTERED MACROPHAGES, AND COLLOID ARE PRESENT, MOST SUGGESTIVE OF A COLLOID NODULE. Pathologist ICD10: 02 E04.1 02 Josephine Lockwood MD, Pathologist NPI- [id number] Jovani Chan, Child Protective Investigator ([facility]) 01 30 CC, PINK, CLEAR RECIEVED: 9 ALCOHOL FIXED AND 9 QUICK STAINED SLIDES WITH 1 RNA VIAL FOR FURTHER TESTING. /[facility] 06/10/2019 0908 [facility] FLAG LEGEND: L-Low Normal,H-High Normal,LL-Alert Low,HH-Alert High <-Panic Low,>-Panic High,A-Abnormal,AA-Critical Abnormal Performed at: 01 =Z [facility] [address], [place] [address] Rodri Bahena MD, 02 [facility] [address] [place] [phone] Alicia Vásquez MD, Performed at: 01 [facility] [address], [place], [place] [id number] MD Rodri Bahena MD Phone: [phone]
--- NOTE | 2019-06-09 08:51 | DI.US.S_ITS ---
PROCEDURE: US FINE NEEDLE ASPIRATION INDICATIONS: BILATERAL THRYOID FNA TECHNIQUE: The indications, alternatives, benefits, risks, and complications of the procedure were explained to the patient. Written informed consent was obtained and placed in the chart. The area of interest was examined sonographically and a site was chosen for ultrasound guided percutaneous sampling. The skin was prepared and draped in the usual fashion, and anesthetized with 1% lidocaine infiltrated from the skin down to the lesion. Multiple passes were then performed, with contents emptied into an appropriate pathology specimen container. A bandage was applied to the area of access at completion of the study. COMPARISON: None. FINDINGS: Location(s) of lesion(s) sampled: Right lower thyroid lobe, left mid and lower thyroid lobe. [place]: 25 gauge hypodermic needles. Number of passes: 9 on the right and 5 on the left. Medications: 1% lidocaine for local anaesthesia. Complications: None. IMPRESSION: Successful ultrasound-guided bilateral thyroid nodule fine needle aspiration, with cytology results pending. Dictated by: Ignacio Finley M.D. on 06/09/2019 at 13:20 Approved by: Ignacio Finley M.D. on 06/09/2019 at 13:21
== END ==
PROVIDERS: PCP Physician Assistant; Referring Provider Physician Assistant; Visit Provider Physician Assistant
DX: E04.2 Nontoxic multinodular goiter (principal)
CPT/HCPCS: 10005; 10006

== ENCOUNTER → 2019-06-22 09:24 | Outpatient (CLI) | payer MEDICARE, OTHER, SELFPAY ==
[2019-06-22 11:55] LABS: Cholesterol 250 mg/dL (140-199); HDL Cholesterol 91 mg/dL (40-60); LDL Cholesterol Calculated 137 mg/dL (<100); Triglycerides 109 mg/dL (35-150)
[2019-06-22 12:13] LABS: Vitamin D 25 Hydroxy (D3) 35.8 ng/mL (30.0-100.0)
[2019-06-22 12:28] LABS: Thyroid Stimulating Hormone 3.14 uIU/mL (0.47-4.68)
== END ==
PROVIDERS: PCP Physician Assistant; Referring Provider Physician Assistant; Visit Provider Physician Assistant
DX: E03.9 Hypothyroidism, unspecified (principal); E78.5 Hyperlipidemia, unspecified; M81.0 Age-related osteoporosis without current pathological fracture
CPT/HCPCS: 36415; 80061; 82306; 84443

== ENCOUNTER → 2019-11-02 17:03 | Outpatient (CLI) | payer MEDICARE, OTHER, SELFPAY ==
[2019-11-02 17:38] LABS: Bacteria Urine None Seen; WBC Urine None Seen (0-5/HPF)
[2019-11-02 18:35] LABS: Add Manual Diff / Slide Review NO; Basophils Absolute Auto 0 /uL (0-100); Basophils Percent Auto 0.2 % (0-2); Eosinophils Absolute Auto 100 /uL (0-450); Eosinophils Percent Auto 1.2 % (2-4); Hemoglobin 14.3 g/dL (12.0-16.0); Lymphocytes Absolute Auto 1800 /uL (1100-4500); Lymphocytes Percent Auto 26.2 % (25-40); Mean Corpuscular HGB Conc 34.1 % (30-36); Mean Corpuscular Hemoglobin 32.7 PG (26-34); Mean Corpuscular Volume 95.7 fL (80-100); Monocytes Absolute Auto 400 /uL (0-900); Monocytes Percent Auto 6.4 % (3-14); Neutrophils Absolute Auto 4500 /uL (1500-7000); Platelet Count 215 X10^3/uL (150-400); Red Blood Cell Count 4.39 X10^6/uL (4.0-5.2); Red Cell Distribution Width 13.4 % (11.6-14.8); White Blood Cell Count 6.9 X10^3/uL (4.5-11.0)
[2019-11-02 18:57] LABS: Appearance Urine UA CLEAR; Bilirubin Urine UA NEGATIVE (NEGATIVE); Color Urine UA YELLOW; Glucose Urine UA NEGATIVE (Negative); Ketones Urine UA NEGATIVE (NEGATIVE); Leukocyte Esterase Urine UA NEGATIVE (NEGATIVE); Nitrite Urine UA NEGATIVE (Negative); Occult Blood Urine UA 2+ (Negative); Protein Urine UA NEGATIVE (Negative); Urobilinogen Urine UA 0.2 E.U./dL (0.2)
[2019-11-02 18:58] LABS: Albumin 4.6 g/dL (3.5-5.0); Albumin Globulin Ratio 1.6 (1.0-2.8); Alkaline Phosphatase 73 U/L (38-126); Aspartate Aminotransferase 23 IU/L (14-36); BUN Creatinine Ratio 28.1 (6-22); Bilirubin Total 0.5 mg/dL (0.2-1.3); Blood Urea Nitrogen 16 mg/dL (7-17); Calcium 9.4 mg/dL (8.4-10.2); Carbon Dioxide 30 mmol/L (22-32); Chloride 104 mmol/L (98-107); Estimated Glomerular Filt Rate > 60.0 mL/min (>60); Globulin 2.9 g/dL (1.7-4.1); Glucose 86 mg/dL (80-110); HEMOLYSIS < 15 (0-50); Lipase 77 U/L (23-300); Potassium 4.2 mmol/L (3.4-5.1); Sodium 140 mmol/L (137-145); Total Protein 7.5 g/dL (6.3-8.2)
[2019-11-02 19:01] LABS: pH Urine UA 6.5 (4.5-8.0)
[2019-11-02 19:02] LABS: Culture Indicated Urine Cult Not Indicated; RBC Urine 1-5/HPF (0-5/HPF); Squamous Epithelial Cell Urine 0-1 /HPF (0-5/HPF)
[2019-11-03 14:31] LABS: Alanine Aminotransferase 24 IU/L (<35)
== END ==
PROVIDERS: PCP Registered Nurse Diabetes Educator; Referring Provider Registered Nurse Diabetes Educator; Visit Provider Registered Nurse Diabetes Educator
DX: R10.13 Epigastric pain (principal)
CPT/HCPCS: 36415; 80053; 81001; 83690; 85025

== ENCOUNTER → 2019-11-03 08:18 | Outpatient (CLI) | payer MEDICARE, OTHER, SELFPAY ==
[2019-11-05 11:36] LABS: H. Pylori Antigen Stool Negative (Negative)
== END ==
PROVIDERS: PCP Registered Nurse Diabetes Educator; Referring Provider Registered Nurse Diabetes Educator; Visit Provider Registered Nurse Diabetes Educator
DX: R10.13 Epigastric pain (principal)
CPT/HCPCS: 87338

== ENCOUNTER → 2020-02-25 10:30 | Outpatient (CLI) | payer MEDICARE, OTHER, SELFPAY ==
--- NOTE | 2020-02-25 | DI.MG.S_ITS ---
BILATERAL DIGITAL SCREENING MAMMOGRAM 3D/2D WITH CAD: 02/25/2020 CLINICAL: Routine screening. Comparison is made to exams dated: 02/04/2019 mammogram, 01/19/2018 mammogram, and 01/08/2016 mammogram - [facility]. The tissue of both breasts is heterogeneously dense. This may lower the sensitivity of mammography. Current study was also evaluated with a Computer Aided Detection (CAD) system. There is an irregular low density focal asymmetry with an indistinct margin in the left breast at 12 o'clock anterior depth. There is possible architectural distortion associated with the focal asymmetry. No other significant masses, calcifications, or other findings are seen in either breast. IMPRESSION: INCOMPLETE: NEEDS ADDITIONAL IMAGING EVALUATION The irregular low density focal asymmetry in the left breast is indeterminate. Mediolateral and spot compression views as well as additional views with possible ultrasound are recommended. This exam was interpreted at Station ID: [id number]. NOTE: For mammograms, a report in lay terms will be sent to the patient. Approximately 15% of breast malignancies will not be visualized mammographically. In the management of a palpable breast mass, a negative mammogram must not discourage biopsy of a clinically suspicious lesion. Electronically Signed By: Rodri park/:02/25/2020 12:36:24 letter sent: Additional Imaging Needed ACR BI-RADS Category 0: Incomplete [id number]
== END ==
PROVIDERS: PCP Registered Nurse Diabetes Educator; Referring Provider Registered Nurse Diabetes Educator; Visit Provider Registered Nurse Diabetes Educator
DX: Z12.31 Encounter for screening mammogram for malignant neoplasm of breast (principal)
CPT/HCPCS: 77063; 77067

== ENCOUNTER → 2020-03-01 12:07 | Outpatient (CLI) | payer MEDICARE, OTHER, SELFPAY ==
[2020-03-01 13:57] LABS: Hematocrit 41.8 % (36-46); Hemoglobin 14.1 g/dL (12.0-16.0); Mean Corpuscular HGB Conc 33.8 % (30-36); Mean Corpuscular Hemoglobin 32.3 PG (26-34); Mean Corpuscular Volume 95.5 fL (80-100); Platelet Count 214 X10^3/uL (150-400); Red Blood Cell Count 4.38 X10^6/uL (4.0-5.2); Red Cell Distribution Width 13.2 % (11.6-14.8); White Blood Cell Count 6.3 X10^3/uL (4.5-11.0)
[2020-03-01 14:44] LABS: BUN Creatinine Ratio 26.8 (6-22); Blood Urea Nitrogen 15 mg/dL (7-17); Calcium 9.7 mg/dL (8.4-10.2); Carbon Dioxide 31 mmol/L (22-32); Chloride 103 mmol/L (98-107); Estimated Glomerular Filt Rate > 60.0 mL/min (>60); Glucose 84 mg/dL (80-110); HEMOLYSIS < 15 (0-50); Magnesium 2.4 mg/dL (1.6-2.3); Potassium 4.8 mmol/L (3.4-5.1); Sodium 139 mmol/L (137-145)
[2020-03-01 15:17] LABS: TSH w/ Reflex to FT4 1.88 uIU/mL (0.47-4.68)
== END ==
PROVIDERS: PCP Registered Nurse Diabetes Educator; Referring Provider Registered Nurse Diabetes Educator; Visit Provider Registered Nurse Diabetes Educator
DX: R00.2 Palpitations (principal)
CPT/HCPCS: 36415; 80048; 83735; 84443; 85027

== ENCOUNTER → 2020-03-22 09:08 | Outpatient (CLI) | payer MEDICARE, OTHER, SELFPAY ==
--- NOTE | 2020-03-22 | DI.MG.S_ITS ---
UNILATERAL LEFT DIGITAL DIAGNOSTIC MAMMOGRAM 3D/2D WITH ADDITIONAL VIEWS: 03/22/2020 CLINICAL: Additional evaluation requested from prior study. Comparison is made to exams dated: 02/25/2020 mammogram, 02/22/2019 mammogram, and 01/19/2018 mammogram - [facility]. The tissue of left breast is heterogeneously dense. This may lower the sensitivity of mammography. There is an irregular low density focal asymmetry with an indistinct margin in the left breast at 12 o'clock anterior depth. This is less prominent. No other significant masses or calcifications are seen in the breast. IMPRESSION: INCOMPLETE: NEEDS ADDITIONAL IMAGING EVALUATION The irregular low density focal asymmetry in the left breast is indeterminate. An ultrasound is recommended. This exam was interpreted at Station ID: [id number]. NOTE: For mammograms, a report in lay terms will be sent to the patient. Approximately 15% of breast malignancies will not be visualized mammographically. In the management of a palpable breast mass, a negative mammogram must not discourage biopsy of a clinically suspicious lesion. Electronically Signed By: Rodri park/chip:03/22/2020 09:36:17 ACR BI-RADS Category 0: Incomplete [id number]
--- NOTE | 2020-03-22 09:09 | DI.US.S_ITS ---
LIMITED ULTRASOUND OF LEFT BREAST AND AXILLA: 03/22/2020 CLINICAL: Patient returns today to evaluate a focal asymmetry in the left breast. Comparison is made to exams dated: 03/22/2020 mammogram, 02/25/2020 mammogram, 02/22/2019 mammogram, 02/04/2019 mammogram, 01/19/2018 mammogram, and 01/18/2016 [facility]. Color flow and real-time ultrasound of the left breast 12 o'clock, and axilla regions were performed on the areas of interest. There is a 0.5 cm x 0.4 cm x 0.5 cm oval intraductal mass with indistinct and circumscribed margins in the left breast at 12 o'clock anterior depth. This oval intraductal mass is hypoechoic with internal echoes. This may correlate with mammography findings. Color flow imaging demonstrates that there is no vascularity present. No significant abnormalities were seen sonographically in the left axilla. IMPRESSION: SUSPICIOUS OF MALIGNANCY The 0.5 cm x 0.4 cm x 0.5 cm oval intraductal mass in the left breast is suspicious of malignancy. An ultrasound guided biopsy is recommended. The findings were discussed with the patient at the conclusion of the study by telephone. This exam was interpreted at Station ID: [id number]. Electronically Signed By: Rodri park/:03/22/2020 11:18:40 letter sent: Biopsy Required Ultrasound BI-RADS: 4 Suspicious for malignancy
== END ==
PROVIDERS: PCP Registered Nurse Diabetes Educator; Referring Provider Registered Nurse Diabetes Educator; Visit Provider Registered Nurse Diabetes Educator
DX: R92.8 Other abnormal and inconclusive findings on diagnostic imaging of breast (principal); N63.25 Unspecified lump in the left breast, overlapping quadrants
CPT/HCPCS: 76642; 77065; G0279

== ENCOUNTER → 2020-04-06 10:23 | Outpatient (CLI) | payer MEDICARE, OTHER, SELFPAY ==
--- NOTE | 2020-04-06 | PATH_ITS ---
[facility] Accession Number: [id number] . 01 Material submitted: . breast - LEFT BREAST MASS . 02 Diagnosis: Left Breast, Mass, Core Needle Biopsies: Benign breast tissue with fibrocystic changes, including adenosis, fibrosis, and microcysts. Microcalcification present in association with nonneoplastic tissue. Negative for atypical hyperplasia, in situ, or invasive carcinoma. [facility] 04/07/2020 1536 Local . 02 Electronically signed: . Alicia Vásquez MD, Pathologist NPI- [id number] . 01 Gross description: . Received one formalin-filled container, labeled with the patient's name and labeled LT breast core. The specimen is received with a plastic filter in container, sample loose in container and consists of multiple fragments of yellow-choi to choi-sotomayor soft tissue and blood which range in size from 0.2 x 0.2 x 0.2 cm to 1.2 x 0.3 x 0.3 cm. The specimen is entirely submitted in one cassette. Collection date per container: 04/06/20. Possible collection time per requisition: 12:04. Total fixation time: Approximately 15 hours. (DC:[id number]) /R 04/07/2020 0218 Local . 02 Pathologist provided ICD-10: N60.12 . 02 CPT . 565751 Performed at: 01 [facility] [address] [facility], [place], [place] [id number] MD Rodri Bahena MD Phone: [phone] Performed at: 02 [facility] [address] [place], [place] [id number] MD Alicia Vásquez MD Phone: [phone]
--- NOTE | 2020-04-06 | DI.MG.S_ITS ---
UNILATERAL LEFT DIGITAL DIAGNOSTIC MAMMOGRAM POST-NEEDLE BIOPSY: 04/06/2020 CLINICAL: Left breast mass. Comparison is made to exams dated: 03/22/2020 mammogram, 02/25/2020 mammogram, 02/22/2019 mammogram, and 02/04/2019 mammogram - [facility]. The tissue of left breast is heterogeneously dense. This may lower the sensitivity of mammography. There is a biopsy clip at the 12:00 of the left breast. IMPRESSION: Biopsy clip in expect position in the left breast. This exam was interpreted at Station ID: [id number]. NOTE: For mammograms, a report in lay terms will be sent to the patient. Approximately 15% of breast malignancies will not be visualized mammographically. In the management of a palpable breast mass, a negative mammogram must not discourage biopsy of a clinically suspicious lesion. Electronically Signed By: Bridget Main M.D. fx/:04/06/2020 12:05:22 ACR BI-RADS Category n/a
--- NOTE | 2020-04-06 10:24 | DI.US.S_ITS ---
ULTRASOUND GUIDED BIOPSY LEFT BREAST USING VACUUM DEVICE WITH POST MAMMOGRAPHIC AND ULTRASOUND IMAGIN04/06/2020 CLINICAL: Left breast mass. core bx w/ clip placement. PATIENT CONSENT: Risks (minor bleeding, infection, vasovagal reaction and repeat procedure), benefits and alternatives were explained to the patient and written informed consent was obtained. Correlation is made to exams dated: 04/06/2020 mammogram, 03/22/2020 ultrasound, 03/22/2020 mammogram, and 02/25/2020 mammogram - [facility]. An ultrasound guided biopsy using real-time ultrasound was performed for the round mass located in the left breast at 12 o'clock posterior depth. This was described on the previous ultrasound report. The skin was prepped in the usual manner. Local anesthetic was administered to the access site. The abnormality was approached from the lateral aspect. A 13 gauge biopsy needle was placed adjacent to the abnormality under ultrasound guidance. Once the needle was documented to be in the correct location, five specimens were obtained using the Mammotome biopsy system. Post procedure mammographic and ultrasound imaging demonstrates the clip at the targeted area. The specimens were sent to the laboratory for pathological analysis. IMPRESSION: ULTRASOUND GUIDED BIOPSY BENIGN Ultrasound guided biopsy of the mass in the left breast posterior depth was successful. Pathology indicates benign fibrocystic changes including adenosis, fibrosis, and microcysts with micro-calcifications present. Pathology results are concordant with imaging findings. Return to annual mammogram screening schedule is recommended. This exam was interpreted at Station ID: [id number]. Bridget Cleary M.D. fx,aty/:04/10/2020 18:44:04
[2020-04-06 13:04] LABS: Magnesium 2.3 mg/dL (1.6-2.3)
== END ==
PROVIDERS: PCP Registered Nurse Diabetes Educator; Referring Provider Registered Nurse Diabetes Educator; Visit Provider Registered Nurse Diabetes Educator
DX: N60.22 Fibroadenosis of left breast (principal); N60.12 Diffuse cystic mastopathy of left breast; E83.41 Hypermagnesemia
CPT/HCPCS: 19083; 36415; 77065; 83735

== ENCOUNTER → 2020-05-16 11:27 | Outpatient (CLI) | payer MEDICARE, OTHER, SELFPAY ==
--- NOTE | 2020-05-16 11:30 | DI.RAD.S_ITS ---
PROCEDURE: XR CHEST 2V INDICATIONS: 6 month hx of SOB on exertion TECHNIQUE: 2 views of the chest were acquired. COMPARISON: [facility], , CHEST 2 VIEW, 06/09/2016, 14:13. FINDINGS: Surgical changes and devices: None. Lungs and pleura: Lungs are clear. No pleural effusions or pneumothorax. Mediastinum: Mediastinal contours are normal. Heart size is normal. Bones and chest wall: No suspicious bony abnormalities. Soft tissues appear unremarkable. IMPRESSION: No acute cardiopulmonary disease. Dictated by: Bridget Main M.D. on 05/16/2020 at 12:11 Approved by: Bridget Main M.D. on 05/16/2020 at 12:12
== END ==
PROVIDERS: PCP Registered Nurse Diabetes Educator; Referring Provider Registered Nurse Diabetes Educator; Visit Provider Registered Nurse Diabetes Educator
DX: R06.00 Dyspnea, unspecified (principal); R06.02 Shortness of breath
CPT/HCPCS: 71046

== ENCOUNTER → 2020-05-25 15:04 | Outpatient (CLI) | payer MEDICARE, OTHER, SELFPAY ==
[2020-05-25 16:49] LABS: COVID19 -Nasal RAPID Negative (Negative)
== END ==
PROVIDERS: PCP Registered Nurse Diabetes Educator; Referring Provider Internal Medicine; Visit Provider Internal Medicine
DX: Z20.822 Contact with and (suspected) exposure to COVID-19 (principal)
CPT/HCPCS: 87635; C9803

== ENCOUNTER → 2020-05-26 10:28 | Outpatient (CLI) | payer MEDICARE, OTHER, SELFPAY ==
--- NOTE | 2020-05-31 10:27 | PM.PFT.1 ---
Pulmonary Function Test Referral & Results Date Patient Seen: 05/26/20 Requesting provider: Brian Palacios Results: The spirometry demonstrates an FVC of 2.05 L which is 74% of predicted. The FEV1 was measured at 1.65 L which is 79% of predicted. The FEV1/FVC ratio was 81 which is 106% of predicted. Following the administration of bronchodilator there was no appreciable change. Lung volumes show an SVC of 2.10 L which is 70% of predicted. The diffusing capacity was measured at 17.52 which is 81% of predicted. The maximum voluntary ventilation was reduced Interpretation: This study demonstrates possible very mild obstructive lung disease based on reduction FEV1 and shape of flow volume loop although FEV1/FEC ratio remains normal. There may also be very mild restrictive lung disease based on reduction in SVC
== END ==
PROVIDERS: PCP Registered Nurse Diabetes Educator; Referring Provider Registered Nurse Diabetes Educator; Visit Provider Registered Nurse Diabetes Educator
DX: R06.02 Shortness of breath (principal); J98.8 Other specified respiratory disorders
CPT/HCPCS: 94060; 94726; 94729

== ENCOUNTER → 2020-05-29 11:27 | Outpatient (CLI) | payer MEDICARE, OTHER, SELFPAY ==
[2020-05-29 12:47] LABS: Hematocrit 41.1 % (36-46); Hemoglobin 14.2 g/dL (12.0-16.0); Mean Corpuscular HGB Conc 34.6 % (30-36); Mean Corpuscular Hemoglobin 32.9 PG (26-34); Mean Corpuscular Volume 95.2 fL (80-100); Platelet Count 218 X10^3/uL (150-400); Red Blood Cell Count 4.32 X10^6/uL (4.0-5.2); Red Cell Distribution Width 12.8 % (11.6-14.8); White Blood Cell Count 5.4 X10^3/uL (4.5-11.0)
[2020-05-29 12:56] LABS: BUN Creatinine Ratio 23.1 (6-22); Blood Urea Nitrogen 15 mg/dL (7-17); Calcium 9.3 mg/dL (8.4-10.2); Carbon Dioxide 32 mmol/L (22-32); Chloride 102 mmol/L (98-107); Estimated Glomerular Filt Rate > 60.0 mL/min (>60); Glucose 94 mg/dL (80-110); HEMOLYSIS < 15 (0-50); Sodium 138 mmol/L (137-145)
[2020-05-29 15:42] LABS: Protein (Total) Urine Random 11 mg/dL (0-12); Protein Creatinine Ratio Urine 0.22 GRAM/24H
== END ==
PROVIDERS: PCP Registered Nurse Diabetes Educator; Referring Provider Student in an Organized Health Care Education/Training Program; Visit Provider Student in an Organized Health Care Education/Training Program
DX: N05.9 Unspecified nephritic syndrome with unspecified morphologic changes (principal); D70.9 Neutropenia, unspecified; D63.1 Anemia in chronic kidney disease; R80.9 Proteinuria, unspecified
CPT/HCPCS: 36415; 80048; 82570; 84156; 85027

== ENCOUNTER → 2020-06-07 12:20 | Outpatient (CLI) | payer MEDICARE, OTHER, SELFPAY ==
[2020-06-07 12:52] LABS: Bacteria Urine None Seen; WBC Urine None Seen (0-5/HPF)
[2020-06-07 13:58] LABS: Appearance Urine UA CLEAR; Bilirubin Urine UA NEGATIVE (NEGATIVE); Color Urine UA YELLOW; Glucose Urine UA NEGATIVE (Negative); Ketones Urine UA NEGATIVE (NEGATIVE); Leukocyte Esterase Urine UA NEGATIVE (NEGATIVE); Nitrite Urine UA NEGATIVE (Negative); Occult Blood Urine UA 2+ (Negative); Protein Urine UA NEGATIVE (Negative); Specific Gravity Urine UA 1.015 (1.000-1.035); Urobilinogen Urine UA 0.2 E.U./dL (0.2)
[2020-06-07 14:01] LABS: pH Urine UA 5.5 (4.5-8.0)
[2020-06-07 14:08] LABS: Culture Indicated Urine Cult Not Indicated; RBC Urine 1-5/HPF (0-5/HPF)
[2020-06-08 06:09] LABS: Hepatitis B Core Antibody Negative (Negative); Hepatitis B Surf Ab Qualitativ Reactive (.)
[2020-06-08 09:54] LABS: Complement C3 119 mg/dL (82-167)
[2020-06-08 16:45] LABS: Hep C Virus Ab w/Reflex Quant NEGATIVE s/c (NEGATIVE); Hepatitis B Surface Antigen NEGATIVE s/c (NEGATIVE)
[2020-06-08 18:04] LABS: DNA (DS) Antibody <1 IU/mL (0-9)
[2020-06-09 19:55] LABS: ANA Screen, IFA Negative (.)
[2020-06-12 12:36] LABS: Antimyeloperoxidase AB <9.0 U/mL (0.0-9.0); Antiproteinase 3 AB <3.5 U/mL (0.0-3.5); Atypical P-ANCA Titer <1:20 titer (Neg:<1:20); C-ANCA Titer <1:20 titer (Neg:<1:20); P-ANCA Titer <1:20 titer (Neg:<1:20)
== END ==
PROVIDERS: PCP Registered Nurse Diabetes Educator; Referring Provider Student in an Organized Health Care Education/Training Program; Visit Provider Student in an Organized Health Care Education/Training Program
DX: N30.00 Acute cystitis without hematuria (principal); L93.2 Other local lupus erythematosus; M31.30 Wegener's granulomatosis without renal involvement; M32.10 Systemic lupus erythematosus, organ or system involvement unspecified; D89.89 Other specified disorders involving the immune mechanism, not elsewhere classified; B19.10 Unspecified viral hepatitis B without hepatic coma; B17.10 Acute hepatitis C without hepatic coma
CPT/HCPCS: 36415; 81001; 83516; 83520; 86038; 86160; 86225; 86256; 86704; 86706; 86803; 87340

== ENCOUNTER → 2020-06-12 10:51 | Outpatient (CLI) | payer MEDICARE, OTHER, SELFPAY ==
[2020-06-12 12:59] LABS: COVID19 -Nasal RAPID Negative (Negative)
== END ==
PROVIDERS: PCP Registered Nurse Diabetes Educator; Visit Provider Physician Assistant
DX: Z01.812 Encounter for preprocedural laboratory examination (principal); Z20.822 Contact with and (suspected) exposure to COVID-19
CPT/HCPCS: 87635; C9803

== ENCOUNTER → 2020-06-13 09:22 | Outpatient (CLI) | payer MEDICARE, OTHER, SELFPAY ==
--- NOTE | 2020-06-13 14:29 | PM.TREADMILL ---
Cardiac Stress Test Report Referral & Results Date Patient Seen: 06/13/20 Requesting provider: Brian Palacios Indication: Dyspnea upon exertion Rest ECG: Unremarkable with occasional PVC Procedure Note: Today following both written and verbal informed consent the patient was exercised according to a standard Scott protocol patient went for a total of a minutes 47 seconds achieving a maximum heart rate of 131 maximum systolic blood pressure of 164. This is approximately 10.1 METS. Exercise was terminated at this point because of targets were met. Patient was also given Cardiolite through a previously started Hep-Lock IV by the diagnostic imaging staff approximately 1 minute prior to the cessation of exercise. Patient's oxygen saturation remained at 95-96% throughout No ST-T segment changes Occasional PVC at rest the disappeared during activity Function aerobic impairment way way way off scale is to made her exercise capacity to be equal to that of an active 39-year-old female Impression: No evidence of ischemia Excellent/amazing exercise capacity Normal oxygen saturation PC perfusion imaging her port as well which will be reported separately Please note: Actual ECG tracings can be found in the PACS system.
--- NOTE | 2020-06-13 20:01 | DI.NM.S_ITS ---
DATE OF SERVICE: PROCEDURE: Exercise perfusion study. INDICATIONS: Shortness of breath, palpitation, hyperlipidemia, family history of coronary artery disease. RADIOPHARMACEUTICAL: 25.9 millicurie technetium-99m Myoview IV was injected at stress and 9.7 millicurie of technetium-99m Myoview IV was injected at rest. CARDIAC STRESS: The patient underwent exercise perfusion study under the supervision of an attending staff. The patient walked on Scott protocol for 8 minutes and 47 seconds, achieved 87% of target heart rate with normal blood pressure response. The patient achieved 10.1 METS of workload. Functional aerobic impairment was about -50%. Baseline EKG revealed sinus rhythm. During stress, no convincing ischemic changes. Rare PVCs were seen. No anginal symptoms were reported. Normal oxygen saturation during exercise. RAW DATA: There is increased subdiaphragmatic activity. GATED STUDY: Resting LV ejection fraction is 73 percent and stress LV ejection fraction 77 percent. Resting end-diastolic volume 60 mL. TID ratio 0.76, which is within normal limits. Lung/heart ratio 0.32, which is within normal limits. MYOCARDIAL PERFUSION SCAN: Stress supine and resting supine as well as stress prone images were compared to each other. The stress and resting supine images revealed a small size, minimally decreased perfusion of apex, which got completely resolved during prone images suggestive of breast tissue attenuation artifact. I do not see any obvious ischemia or infarction pattern. CONCLUSION: I will call this study a normal myocardial perfusion study with evidence of breast tissue attenuation artifact which got resolved during prone images. Good exercise tolerance. Normal hemodynamic response. Preserved left ventricular function. Overall, this is a low-risk exercise perfusion study. Rosario Reyes - ANDREW/ambar/zbigniew doc#: [id number]/job#: [id number] dd: 06/13/2020 17:31:00 dt: 06/13/2020 19:48:00 DICTATING MD/COPIES TO: Curtis Shahid MD COPIES MNE: ALBERTO;
== END ==
PROVIDERS: PCP Registered Nurse Diabetes Educator; Referring Provider Registered Nurse Diabetes Educator; Visit Provider Registered Nurse Diabetes Educator
DX: R06.00 Dyspnea, unspecified (principal); R06.02 Shortness of breath; R00.2 Palpitations; E78.5 Hyperlipidemia, unspecified; Z82.49 Family history of ischemic heart disease and other diseases of the circulatory system
CPT/HCPCS: 78452; 93016; 93017; 93018; A9502

== ENCOUNTER → 2020-06-18 11:01 | Outpatient (CLI) | payer MEDICARE, OTHER, SELFPAY ==
--- NOTE | 2020-06-18 11:02 | DI.RAD.S_ITS ---
PROCEDURE: XR ANKLE LT MIN 3V INDICATIONS: L Lateral malleolar pain post fall TECHNIQUE: 3 views of the ankle were acquired. COMPARISON: [facility], CR, XR FOOT LT MIN 3V, 06/18/2020, 11:02. [facility], CR, ANKLE 3 VIEWS RIGHT, 08/20/2012, 10:47. FINDINGS: Bones: Linear lucency traverses distal fibula.. Ankle mortise is normally aligned. No suspicious bony lesions. Calcaneal spurring. Soft tissues: No tibiotalar joint effusion. Achilles tendon appears normal. IMPRESSION: Minimally displaced distal fibular fracture. Dictated by: Ronald Ponce M.D. on 06/18/2020 at 10:16 Approved by: Ronald Ponce M.D. on 06/18/2020 at 10:17
--- NOTE | 2020-06-18 11:02 | DI.RAD.S_ITS ---
PROCEDURE: XR FOOT LT MIN 3V INDICATIONS: L Lateral metatarsal pain post fall TECHNIQUE: 3 views of the foot were acquired. COMPARISON: [facility], , FOOT 3V RIGHT, 08/20/2012, 10:47. FINDINGS: Bones: No fractures or dislocations. No suspicious bony lesions. Calcaneal spurring. Soft tissues: No tibiotalar joint effusion. Achilles tendon appears normal. IMPRESSION: No acute fracture. No osseous lesion. If symptoms and/or clinical suspicion for pathology persist, further assessment with repeat, or advanced imaging (e.g., CT, MRI, or bone scan) may be helpful for further assessment. Dictated by: Ronald Ponce M.D. on 06/18/2020 at 10:15 Approved by: Ronald Ponce M.D. on 06/18/2020 at 10:16
== END ==
PROVIDERS: PCP Registered Nurse Diabetes Educator; Referring Provider Nurse Practitioner; Visit Provider Nurse Practitioner
DX: S82.832A Other fracture of upper and lower end of left fibula, initial encounter for closed fracture (principal); M79.672 Pain in left foot; W19.XXXA Unspecified fall, initial encounter
CPT/HCPCS: 73610; 73630

== ENCOUNTER → 2020-07-10 12:11 | Outpatient (CLI) | payer MEDICARE, OTHER, SELFPAY ==
[2020-07-10 13:45] LABS: BUN Creatinine Ratio 20.6 (6-22); Blood Urea Nitrogen 14 mg/dL (7-17); Calcium 9.4 mg/dL (8.4-10.2); Carbon Dioxide 29 mmol/L (22-32); Chloride 101 mmol/L (98-107); Estimated Glomerular Filt Rate > 60.0 mL/min (>60); Glucose 93 mg/dL (80-110); HEMOLYSIS < 15 (0-50); Sodium 136 mmol/L (137-145)
[2020-07-10 13:53] LABS: NT-proBNP (BNP-Adult 18+) 53 pg/mL (<125)
== END ==
PROVIDERS: PCP Registered Nurse Diabetes Educator; Referring Provider Student in an Organized Health Care Education/Training Program; Visit Provider Student in an Organized Health Care Education/Training Program
DX: N05.9 Unspecified nephritic syndrome with unspecified morphologic changes (principal); R06.00 Dyspnea, unspecified
CPT/HCPCS: 36415; 80048; 83880

== ENCOUNTER → 2020-07-24 11:04 | Outpatient (CLI) | payer MEDICARE, OTHER, SELFPAY ==
[2020-07-24 12:56] LABS: COVID19 -Nasal RAPID Negative (Negative)
== END ==
PROVIDERS: PCP Registered Nurse Diabetes Educator; Visit Provider Physician Assistant
DX: Z01.812 Encounter for preprocedural laboratory examination (principal); Z20.822 Contact with and (suspected) exposure to COVID-19
CPT/HCPCS: 87635; C9803

== ENCOUNTER 2020-07-26 09:41 | Day surgery (SDC) | payer MEDICARE, OTHER, SELFPAY ==
[2020-07-26] VITALS (13 sets, daily range): BP systolic 94–146; BP diastolic 48–74; PULSE 55–69; RESP 12–16; TEMP 36.2–36.8; O2SAT 94–100; BMI 22.8
--- NOTE | 2020-07-26 | PATH_ITS ---
[facility] Accession Number: [id number] . 01 Material submitted: . PART A: small bowel - SMALL BOWEL PART B: gastrointestinal site - STOMACH . 01 Clinical history: . A: R/O CELIAC B: BIOPSY FOR HP EGD . 02 Diagnosis: A. Small Bowel, Biopsy: Duodenal mucosa with no diagnostic abnormality. Negative for active inflammation, features of sprue, dysplasia, or malignancy. . B. Stomach, Biopsy: Antral and body-type mucosa with no diagnostic abnormality. No evidence of Helicobacter on H/E stain. Negative for intestinal metaplasia. Negative for dysplasia and malignancy. MRV 07/31/2020 1446 Local . 02 Comment: B. An immunohistochemical stain will be performed to evaluate for Helicobacter organisms and the results reported as an addendum. . 02 Electronically signed: . Alicia Vásquez MD, Pathologist NPI- [id number] . 01 Gross description: . A. Received in formalin and labeled small bowel and consists of three sotomayor-pink fragments of soft tissue measuring 0.6 x 0.6 x 0.2 cm in aggregate. The specimen is entirely submitted in cassette A1. B. Received in formalin and labeled stomach and consists of two sotomayor-pink fragments of soft tissue measuring 0.5 x 0.4 x 0.2 cm in aggregate. The specimen is entirely submitted in cassette B1. ([id number]) /MRV 07/27/2020 1420 Local . 02 Pathologist provided ICD-10: K21.9 . 02 CPT . 391315, 231934, [id number] Performed at: [address], [place], [place] [id number] MD Rodri Bahena MD Phone: [phone] Performed at: 02 [facility] [address] [place] [id number] MD Alicia Vásquez MD Phone: [phone]
[2020-07-26] MEDS: SODIUM CHLORIDE 0.9% 1,000 ML 100 ML IV (10:19)
--- NOTE | 2020-07-26 10:32 | PM.HP.1 ---
History of Present Illness History of Present Illness Date Patient Seen: 07/26/20 Chief complaint: EGD Narrative: History of GERD with possible history of Patel's. Rule out Patel's. Patient History Medical History (Updated 07/01/20 @ 18:00 by KATHRYN Oropeza) Carpal tunnel syndrome Carpal tunnel syndrome Cataracts, bilateral (2013) Cataracts, bilateral (2013) Chronic back pain Chronic back pain Colon polyps (11/2010) Colon polyps (11/2010) Fibroids (~1997) Fibroids (~1997) Gastroparesis Gastroparesis H/O vaginal delivery Hyperlipemia Hyperlipemia Lower urinary tract symptoms (LUTS) Microscopic hematuria Palpitations Postmenopausal atrophic vaginitis Surgical History History of back surgery History of back surgery History of carpal tunnel repair Hx of blepharoplasty (2015) Hx of blepharoplasty (2015) Hx of breast surgery Hx of breast surgery Hx of cataract surgery (~2014) Hx of cataract surgery (~2014) Hx of removal of cyst Hx of removal of cyst Status post appendectomy Status post hysterectomy Status post knee surgery Family & Social History Family History Father Diabetes mellitus Heart disease Hypertension Grandmother Diabetes mellitus Mother Age: 89 Heart disease Hypertension High cholesterol Stomach problems Pacemaker Grandmother Heart disease Sister Age: 69 Cancer Hypertension High cholesterol Sister Age: 62 Knee problem Social History: household members none Tobacco & Substance use: Smoking Status Never smoker alcohol intake never alcohol intake frequency holiday/special occasion Substance Use Type does not use Meds Home Medications and Allergies Home Medications Medication Instructions Recorded Confirmed Type Calcium/Vitamin D3 Gummies 2 ea PO DAILY 10/29/18 06/18/20 History Multivitamin Gummies See Rx Instructions .ROUTE .COMPLEX 12/09/18 06/18/20 History diclofenac sodium 1 % topical gel 4 gram TOP QID #200 gram 05/26/19 06/18/20 Rx Rios-triple joint Healthy PO 03/01/20 06/18/20 History meclizine 25 mg tablet 25 mg PO BID PRN #14 tab 07/01/20 07/01/20 Rx famotidine [Pepcid] 20 mg PO DAILY 07/26/20 07/26/20 History Allergies Allergy/AdvReac Type Severity Reaction Status Date / Time ciprofloxacin [From CIPRO] Allergy Mild red ears Verified 06/18/20 10:52 iodine [IODINE] Allergy Mild itch Verified 06/18/20 10:52 Sulfa (Sulfonamide Allergy Mild red ears Verified 06/18/20 10:52 Antibiotics) [SULFA (SULFONAMIDE ANTIBIOTICS)] amoxicillin Allergy Unknown Verified 07/26/20 10:06 Penicillins Allergy Unknown Patient Verified 06/18/20 10:52 does not remember ibuprofen [IBUPROFEN] AdvReac Severe CHEST PAIN Verified 06/18/20 10:52 aspirin AdvReac Intermediate Upset Verified 06/18/20 10:52 stomach Exam Vital Signs (past 8 hours): - 07/26/20 10:10 Temperature 98.3 F Pulse Rate 66 Respiratory Rate 16 Blood Pressure 146/72 H Pulse Oximetry 96 Oxygen Delivery Method Room Air Narrative Exam Narrative: Oropharynx free of lesions Chest clear to auscultation percussion Cardiac exam reveals no S3 or murmur Assessment & Plan Assessment & Plan narrative: GE reflux with history of Patel's known not well documented. Rule out Patel's esophagus. Risks benefits alternatives have been explained
--- NOTE | 2020-07-26 10:33 | PM.OP.ENDO ---
Operative Date/Time/Diagnoses Date of procedure: 07/26/20 Pre-op diagnosis: See indication and findings Procedure & Clinicians Study performed: EGD Same procedure as scheduled: Yes Indications: History of GE reflux and possible Patel's esophagus, bloating, nausea and vomiting Surgeon: Adria Sharma Procedure Notes Procedure in detail: After informed consent was obtained the patient was placed in left lateral decubitus position. The video upper scope was placed into the oropharynx and with the patient's help swelled into the esophagus. The esophagus stomach and duodenum were carefully examined. On withdrawal, retroflexed view the GE junction was performed. The scope was removed. The patient tolerated procedure well. Blood loss none Complications none Sedation Total sedation time 10 minutes Versed 2 mg fentanyl 100 right g IV titration Findings 1. Normal esophagus was completely normal with normal squamocolumnar junction. No biopsies taken 2. [id number] erythema and edema in the pre-pyloric and antral position with some hematin flecks present. Biopsies taken to rule out Helicobacter 3. Normal duodenal bulb and sweep biopsies taken to rule out celiac Will follow up on biopsies for Rosario
[2020-07-26] MEDS: MIDAZOLAM 5 MG/5 ML VIAL IV (11:47)
[2020-07-26] MEDS: fentaNYL 250 MCG/5 ML INJ IV (11:49)
== END 2020-07-26 13:05 | disposition home or self-care (01) ==
PROVIDERS: PCP Registered Nurse Diabetes Educator; Referring Provider Internal Medicine Gastroenterology; Visit Provider Internal Medicine Gastroenterology
PROC: 0DJ08ZZ Inspection of Upper Intestinal Tract, Via Natural or Artificial Opening Endoscopic (ICD-10-PCS; CPT 43235; principal; 2020-07-26 11:30)
DX: R11.2 Nausea with vomiting, unspecified (principal); R14.0 Abdominal distension (gaseous); K21.9 Gastro-esophageal reflux disease without esophagitis
CPT/HCPCS: 43239; J2250; J3010

== ENCOUNTER 2020-09-03 17:48 | Emergency (ER) | payer MEDICARE, OTHER, SELFPAY ==
[2020-09-03 18:11] VITALS: BP 151/62; PULSE 68; TEMP 37.1; O2SAT 97
--- NOTE | 2020-09-03 18:11 | ED_ITS ---
HPI - Allergic Reaction General Chief complaint: Allergic Reaction Stated complaint: Hives and Rash Time Seen by Provider: 09/03/20 18:05 Source: patient Mode of arrival: Ambulatory Limitations: no limitations History of Present Illness HPI narrative: Patient is a 70-year-old female who at the end of last week devel oped a rash primarily on her upper extremities and around her upper abdomen and around her groin area. She did go to the walk-in clinic where she received a ?shot? of some steroids and was sent home on steroids and Benadryl. She has had 1 full day of the steroids by mouth and she states that the rash returned today. She did have some nausea earlier today but that is resolved. No vomiting. No fevers. No problems breathing. No sick contacts. No no new exposures. Related Data Home Medications Medication Instructions Recorded Confirmed Calcium/Vitamin D3 Gummies 2 ea PO DAILY 10/29/18 08/08/20 Multivitamin Gummies See Rx Instructions .ROUTE .COMPLEX 12/09/18 08/08/20 Rios-triple joint Healthy PO 03/01/20 08/08/20 famotidine [Pepcid] 20 mg PO DAILY 07/26/20 08/08/20 Previous Rx's Medication Instructions Recorded meclizine 25 mg tablet 25 mg PO BID PRN #14 tab 07/01/20 diclofenac sodium 1 % topical gel 4 g TOP QID #200 gram 08/28/20 prednisone 20 mg tablet 40 mg PO DAILY 4 Days #8 tab 09/02/20 prednisone 20 mg PO DAILY #33 tab 09/03/20 Allergies Allergy/AdvReac Type Severity Reaction Status Date / Time ciprofloxacin [From CIPRO] Allergy Mild red ears Verified 06/18/20 10:52 iodine [IODINE] Allergy Mild itch Verified 06/18/20 10:52 Sulfa (Sulfonamide Allergy Mild red ears Verified 06/18/20 10:52 Antibiotics) [SULFA (SULFONAMIDE ANTIBIOTICS)] amoxicillin Allergy Unknown Verified 07/26/20 10:06 Penicillins Allergy Unknown Patient Verified 06/18/20 10:52 does not remember ibuprofen [IBUPROFEN] AdvReac Severe CHEST PAIN Verified 06/18/20 10:52 aspirin AdvReac Intermediate Upset Verified 06/18/20 10:52 stomach Review of Systems Constitutional Constitutional: Denies fever(s) Eyes Eyes: Reports itchy eyes ENT Ears, Nose, Mouth, and Throat: Denies throat swelling and Denies tongue swelling Cardiovascular Cardiovascular: Denies chest pain and Denies dyspnea Respiratory Respiratory: Denies cough and Denies dyspnea Gastrointestinal Gastrointestinal: Reports nausea (Earlier today but this has resolved) Integumentary/Breasts Skin/Breast: Reports rash Neurologic Neurologic: Denies behavioral changes Psychiatric Psychiatric: Reports system reviewed and no additional complaints, except as documented and Denies behavioral changes Hematologic/Lymphatic On Anticoagulants: No Allergic/Immunologic Allergic/Immunologic: Reports urticaria, Reports itchy eyes, Denies throat swelling and Denies tongue swelling Patient History Medical History Carpal tunnel syndrome Carpal tunnel syndrome Cataracts, bilateral (2013) Cataracts, bilateral (2013) Chronic back pain Chronic back pain Colon polyps (11/2010) Colon polyps (11/2010) Fibroids (~1997) Fibroids (~1997) Gastroparesis Gastroparesis H/O vaginal delivery Hyperlipemia Hyperlipemia Lower urinary tract symptoms (LUTS) Microscopic hematuria Palpitations Postmenopausal atrophic vaginitis Surgical History History of back surgery History of back surgery History of carpal tunnel repair Hx of blepharoplasty (2015) Hx of blepharoplasty (2015) Hx of breast surgery Hx of breast surgery Hx of cataract surgery (~2014) Hx of cataract surgery (~2014) Hx of removal of cyst Hx of removal of cyst Status post appendectomy Status post hysterectomy Status post knee surgery Family History Father Diabetes mellitus Heart disease Hypertension Grandmother Diabetes mellitus Mother Age: 89 Heart disease Hypertension High cholesterol Stomach problems Pacemaker Grandmother Heart disease Sister Age: 69 Cancer Hypertension High cholesterol Sister Age: 62 Knee problem Social History household members: none Smoking Status: Never smoker second hand exposure: No alcohol intake: never substance use type: does not use Smoking Status: Never smoker alcohol intake frequency: holidays/special occasions only Substance Use Type: does not use Exam Initial Vital Signs Initial Vital Signs: Vital Signs Temperature 98.8 F 09/03/20 18:11 Pulse Rate 68 09/03/20 18:11 Blood Pressure 151/62 H 05/16/21 18:11 Pulse Oximetry 97 09/03/20 18:11 Const General: cooperative and comfortable Limitations: mental status not altered HENMT Head: normal to inspection and normocephalic Mouth: oral mucosae normal Resp Effort & Inspection: normal respiratory effort Auscultation: clear to auscultation bilaterally Cardio Rate: regular rate Rhythm: regular rhythm Skin Other: Patient with urticaria and also purpura located mostly on her upper extremities and on her upper abdomen under her breasts. She also reports the same looking rash around her groin. Minimal if any rash on her lower extremities. Some rash/hives on her back. Course Orders Ordered: ED Orders 09/03/20 18:20 Complete Blood Count AUTO DIFF Stat Comprehensive Metabolic Panel Stat Lipase Stat Discontinued Medications Diphenhydramine HCl (Diphenhydramine 50 Mg/Ml Vial) 25 mg IV NOW ONE Stop: 09/03/20 18:13 Last Admin: 09/03/20 18:32 Dose: 25 mg Documented by: BRIANDA Methylprednisolone (Methylprednisolone 125 Mg/2 Ml Vial) 125 mg IV NOW ONE Stop: 09/03/20 18:13 Last Admin: 09/03/20 18:32 Dose: 125 mg Documented by: BRIANDA Vital Signs Vital signs: Vital Signs - 8 hr 09/03/20 18:11 09/03/20 19:19 Temperature 98.8 F Pulse Rate 68 65 Respiratory Rate 16 Blood Pressure 151/62 H 171/78 H Pulse Oximetry 97 100 MDM - Allergic Reaction Lab Data Attestation: I reviewed the patient's lab results. Result diagrams: 09/03/20 18:20 09/03/20 18:20 Labs: Lab Results 09/03/20 09/03/20 09/03/20 Range/Units 18:20 18:20 18:20 WBC 8.7 (4.5-11.0) X10^3/uL RBC 4.64 (4.0-5.2) X10^6/uL Hgb 15.0 (12.0-16.0) g/dL Hct 44.0 (36-46) % MCV 94.9 (80-100) fL MCH 32.3 (26-34) PG MCHC 34.0 (30-36) % RDW 13.0 (11.6-14.8) % Plt Count 193 (150-400) X10^3/uL Neut % (Auto) 78.8 H (50-75) % Lymph % (Auto) 15.1 L (25-40) % Woods % (Auto) 5.9 (3-14) % Eos % (Auto) 0.1 L (2-4) % Baso % (Auto) 0.1 (0-2) % Neut # (Auto) 6900 (5843-2656) /uL Lymph # (Auto) 1300 (5262-9528) /uL Woods # (Auto) 500 (0-900) /uL Eos # (Auto) 0 (0-450) /uL Baso # (Auto) 0 (0-100) /uL Sodium 139 (137-145) mmol/L Potassium 4.3 (3.4-5.1) mmol/L Chloride 102 (98-107) mmol/L Carbon Dioxide 28 (22-32) mmol/L BUN 19 H (7-17) mg/dL Creatinine 0.68 (0.52-1.04) mg/dL Estimated GFR > 60.0 (>60) mL/min BUN/Creatinine Ratio 27.9 H (6-22) Glucose 123 H (80-110) mg/dL Calcium 9.9 (8.4-10.2) mg/dL Total Bilirubin 0.3 (0.2-1.3) mg/dL AST 22 (14-36) IU/L ALT 21 (<35) IU/L Alkaline Phosphatase 66 (38-126) U/L Total Protein 7.7 (6.3-8.2) g/dL Albumin 4.6 (3.5-5.0) g/dL Globulin 3.1 (1.7-4.1) g/dL Albumin/Globulin Ratio 1.5 (1.0-2.8) Lipase 42 (23-300) U/L [facility] Narrative Medical decision making narrative: Labs are unremarkable. Does not meet criteria for anaphylaxis. Unknown of the exact etiology of the rash but it did seem to improve after she received steroids at the walk-in clinic that has returned today. She was given IV steroids and also Benadryl and had a very good response to this. Her rash was not completely gone but it was much improved and she was not itching as much as which she was before. I did discuss with her the lack of definitive etiology. Plan will be is to increase her steroids and provide a much longer taper given her presentation. She was given return precautions and follow-up instructions. She expressed understanding and agreement. Discharge Plan Departure Patient Disposition: Home Clinical Impression: Rash Instructions: DI for Rash Activity Restrictions/Additional Instructions: Starting tomorrow we are going to increase the amount of prednisone that you are taking. Recurrent have you take 60 mg (3 tablets) 1 time a day for 5 days. Then you are going to take 40 mg (2 tablets) 1 time a day for 5 days. Then you are going to take 20 mg (1 tablet) 1 time a day for 5 days. Then your going to take 10 mg (1/2 tablet) 1 time a day for 5 days. A prescription for this was transmitted to [facility]. You can also take Benadryl as needed. Contact your primary provider for a follow-up. Return to the emergency department for any new or worsening symptoms. Prescriptions: New prednisone 20 mg tablet 20 mg PO DAILY Qty: 33 RF: 0 No Action meclizine 25 mg tablet 25 mg PO BID PRN (Reason: dizziness) Qty: 14 RF: 0 prednisone 20 mg tablet 40 mg PO DAILY 4 Days Qty: 8 RF: 0 diclofenac sodium 1 % gel 4 g TOP QID Qty: 200 RF: 3 Rios-triple joint Healthy PO RF: 0 Calcium/Vitamin D3 Gummies 2 ea PO DAILY RF: 0 Multivitamin Gummies See Rx Instructions .ROUTE .COMPLEX RF: 0 famotidine [Pepcid] 20 mg Tablet 20 mg PO DAILY RF: 0 Referrals: Brian Palacios ARNP [Primary Care Provider] -
[2020-09-03] MEDS: diphenhydrAMINE 50 MG/ML VIAL 25 MG IV (18:32)
[2020-09-03] MEDS: methylPREDNISolone 125 MG/2 ML VIAL IV (18:32)
[2020-09-03 18:42] LABS: Add Manual Diff / Slide Review NO; Basophils Absolute Auto 0 /uL (0-100); Basophils Percent Auto 0.1 % (0-2); Eosinophils Absolute Auto 0 /uL (0-450); Eosinophils Percent Auto 0.1 % (2-4); Lymphocytes Absolute Auto 1300 /uL (1100-4500); Lymphocytes Percent Auto 15.1 % (25-40); Mean Corpuscular Hemoglobin 32.3 PG (26-34); Mean Corpuscular Volume 94.9 fL (80-100); Monocytes Absolute Auto 500 /uL (0-900); Monocytes Percent Auto 5.9 % (3-14); Neutrophils Absolute Auto 6900 /uL (1500-7000); Neutrophils Percent Auto 78.8 % (50-75); Platelet Count 193 X10^3/uL (150-400); Red Blood Cell Count 4.64 X10^6/uL (4.0-5.2); White Blood Cell Count 8.7 X10^3/uL (4.5-11.0)
[2020-09-03 18:56] LABS: Alanine Aminotransferase 21 IU/L (<35); Albumin 4.6 g/dL (3.5-5.0); Albumin Globulin Ratio 1.5 (1.0-2.8); Alkaline Phosphatase 66 U/L (38-126); Aspartate Aminotransferase 22 IU/L (14-36); BUN Creatinine Ratio 27.9 (6-22); Bilirubin Total 0.3 mg/dL (0.2-1.3); Blood Urea Nitrogen 19 mg/dL (7-17); Calcium 9.9 mg/dL (8.4-10.2); Carbon Dioxide 28 mmol/L (22-32); Chloride 102 mmol/L (98-107); Estimated Glomerular Filt Rate > 60.0 mL/min (>60); Globulin 3.1 g/dL (1.7-4.1); Glucose 123 mg/dL (80-110); HEMOLYSIS < 15 (0-50); Lipase 42 U/L (23-300); Potassium 4.3 mmol/L (3.4-5.1); Sodium 139 mmol/L (137-145); Total Protein 7.7 g/dL (6.3-8.2)
[2020-09-03 19:19] VITALS: BP 171/78; PULSE 65; RESP 16; O2SAT 100
== END 2020-09-03 19:45 | disposition home or self-care (01) ==
PROVIDERS: Emergency Provider Emergency Medicine; PCP Registered Nurse Diabetes Educator
DX: R21 Rash and other nonspecific skin eruption (principal); R11.0 Nausea
CPT/HCPCS: 36415; 80053; 83690; 85025; 96374; 96375; 99284; J1200; J2930

== ENCOUNTER 2020-09-04 17:43 | Emergency (ER) | payer MEDICARE, OTHER, SELFPAY ==
[2020-09-04 17:55] VITALS: BP 186/79; PULSE 71; RESP 22; TEMP 36.8; O2SAT 98
--- NOTE | 2020-09-04 19:59 | ED.SKABFB ---
HPI - Skin/Abscess/Foreign Bdy General Chief complaint: Skin/Abscess/Foreign Body Stated complaint: Rash-here yesterday Time Seen by Provider: 09/04/20 17:59 Source: patient Mode of arrival: Ambulatory Limitations: no limitations History of Present Illness HPI narrative: Patient is a 70-year-old female who I evaluated the emergency department yesterday for rash. Unsure the exact etiology of the rash however she received IV steroids and Benadryl she had improvement although not complete resolution. She was discharged home with steroids. She returns to the emergency department today because of continued rash and continued itching. She did take the dose of Benadryl today. She states that she is having quite a bit of itching. She tried some calamine lotion with only minimal improvement. Related Data Home Medications Medication Instructions Recorded Confirmed Calcium/Vitamin D3 Gummies 2 ea PO DAILY 10/29/18 08/08/20 Multivitamin Gummies See Rx Instructions .ROUTE .COMPLEX 12/09/18 08/08/20 Rios-triple joint Healthy PO 03/01/20 08/08/20 famotidine [Pepcid] 20 mg PO DAILY 07/26/20 08/08/20 Previous Rx's Medication Instructions Recorded meclizine 25 mg tablet 25 mg PO BID PRN #14 tab 07/01/20 diclofenac sodium 1 % topical gel 4 g TOP QID #200 gram 08/28/20 prednisone 20 mg tablet 40 mg PO DAILY 4 Days #8 tab 09/02/20 prednisone 20 mg PO DAILY #33 tab 09/03/20 hydroxyzine HCl 25 mg PO TID PRN #30 tab 09/04/20 Allergies Allergy/AdvReac Type Severity Reaction Status Date / Time ciprofloxacin [From CIPRO] Allergy Mild red ears Verified 09/04/20 19:52 iodine [IODINE] Allergy Mild itch Verified 09/04/20 19:52 Sulfa (Sulfonamide Allergy Mild red ears Verified 09/04/20 19:52 Antibiotics) [SULFA (SULFONAMIDE ANTIBIOTICS)] amoxicillin Allergy Unknown Verified 09/04/20 19:52 Penicillins Allergy Unknown Patient Verified 09/04/20 19:52 does not remember ibuprofen [IBUPROFEN] AdvReac Severe CHEST PAIN Verified 09/04/20 19:52 aspirin AdvReac Intermediate Upset Verified 09/04/20 19:52 stomach Review of Systems Constitutional Constitutional: Denies fever(s) Eyes Eyes: Denies itchy eyes ENT Ears, Nose, Mouth, and Throat: Denies throat swelling and Denies tongue swelling Cardiovascular Cardiovascular: Denies dyspnea Respiratory Respiratory: Denies dyspnea Gastrointestinal Gastrointestinal: Denies vomiting Integumentary/Breasts Skin/Breast: Reports rash Neurologic Neurologic: Reports system reviewed and no additional complaints, except as documented Hematologic/Lymphatic On Anticoagulants: No Allergic/Immunologic Allergic/Immunologic: Reports urticaria, Denies itchy eyes, Denies throat swelling and Denies tongue swelling Patient History Medical History Carpal tunnel syndrome Carpal tunnel syndrome Cataracts, bilateral (2013) Cataracts, bilateral (2013) Chronic back pain Chronic back pain Colon polyps (11/2010) Colon polyps (11/2010) Fibroids (~1997) Fibroids (~1997) Gastroparesis Gastroparesis H/O vaginal delivery Hyperlipemia Hyperlipemia Lower urinary tract symptoms (LUTS) Microscopic hematuria Palpitations Postmenopausal atrophic vaginitis Surgical History History of back surgery History of back surgery History of carpal tunnel repair Hx of blepharoplasty (2015) Hx of blepharoplasty (2015) Hx of breast surgery Hx of breast surgery Hx of cataract surgery (~2014) Hx of cataract surgery (~2014) Hx of removal of cyst Hx of removal of cyst Status post appendectomy Status post hysterectomy Status post knee surgery Family History Father Diabetes mellitus Heart disease Hypertension Grandmother Diabetes mellitus Mother Age: 89 Heart disease Hypertension High cholesterol Stomach problems Pacemaker Grandmother Heart disease Sister Age: 69 Cancer Hypertension High cholesterol Sister Age: 62 Knee problem Social History household members: none Smoking Status: Never smoker second hand exposure: No alcohol intake: never substance use type: does not use Smoking Status: Never smoker alcohol intake frequency: holidays/special occasions only Substance Use Type: does not use Exam Initial Vital Signs Initial Vital Signs: Vital Signs Temperature 98.2 F 09/04/20 17:55 Pulse Rate 71 09/04/20 17:55 Respiratory Rate 22 09/04/20 17:55 Blood Pressure 186/79 H 05/17/21 17:55 Pulse Oximetry 98 09/04/20 17:55 Const General: cooperative Limitations: mental status not altered HENMT Head: normal to inspection and normocephalic Mouth: oral mucosae normal Throat: posterior oropharynx normal Resp Effort & Inspection: normal respiratory effort Auscultation: clear to auscultation bilaterally Cardio Rate: regular rate Skin General: turgor normal Rashes: rashes noted Trauma: no lacerations Neuro General: patient alert and patient awake Extrem General: capillary refill normal Psych Appearance: well kempt Course Vital Signs Vital signs: Vital Signs - 8 hr 09/04/20 17:55 Temperature 98.2 F Pulse Rate 71 Respiratory Rate 22 Blood Pressure 186/79 H Pulse Oximetry 98 MDM - Skin/Abscess/Foreign Bdy MDM Narrative Medical decision making narrative: Her rash today is worse than when she was discharged yesterday but it is certainly not worse than when she arrived to her appointment yesterday. Potentially is slightly better although she does seem to have quite a bit of discomfort with itching specifically on her right arm. She did take her steroids today. I again am unsure the exact etiology however she does not have any indication of anaphylaxis. Reassured the patient that we are going to need to continue with the steroids another treatments. We did discuss the use of topical steroids and Benadryl in very limited areas on her body. We will also had Zyrtec on to her regiment. Also prescribed hydroxyzine. She was given return precautions and follow-up instructions and instructed she need to contact her primary provider for follow-up. She expressed understanding and agreement. Discharge Plan Departure Patient Disposition: Home Clinical Impression: Rash Instructions: DI for Rash Activity Restrictions/Additional Instructions: Recommend that you continue with steroids that we discussed yesterday. You can change the Benadryl around. You can continue with 1 tablet every 6 hours or you can increase the dose to 2 tablets every 6 hours or increase the frequency and do 1 tablet every 4 hours. Also recommend that you purchase Zyrtec or the generic version this medication [id number]. You can start taking it 1 time a day. This may help with your itching. You can also use topical Benadryl cream and also topical steroid cream and very limited areas. You were also given a prescription for medicine called Atarax. This may also help with your itching. Recommend you contact your primary provider for a follow-up. Return to the emergency department for any new symptoms Prescriptions: New hydroxyzine HCl 25 mg tablet 25 mg PO TID PRN (Reason: itching) Qty: 30 RF: 0 No Action meclizine 25 mg tablet 25 mg PO BID PRN (Reason: dizziness) Qty: 14 RF: 0 prednisone 20 mg tablet 40 mg PO DAILY 4 Days Qty: 8 RF: 0 diclofenac sodium 1 % gel 4 g TOP QID Qty: 200 RF: 3 Rios-triple joint Healthy PO RF: 0 Calcium/Vitamin D3 Gummies 2 ea PO DAILY RF: 0 Multivitamin Gummies See Rx Instructions .ROUTE .COMPLEX RF: 0 famotidine [Pepcid] 20 mg Tablet 20 mg PO DAILY RF: 0 prednisone 20 mg tablet 20 mg PO DAILY Qty: 33 RF: 0 Referrals: Brian Palacios ARNP [Primary Care Provider] -
== END 2020-09-04 20:09 | disposition home or self-care (01) ==
PROVIDERS: Emergency Provider Emergency Medicine; PCP Registered Nurse Diabetes Educator
DX: R21 Rash and other nonspecific skin eruption (principal)
CPT/HCPCS: 99281

== ENCOUNTER → 2020-09-08 12:50 | Outpatient (CLI) | payer MEDICARE, OTHER, SELFPAY ==
--- NOTE | 2020-09-08 12:51 | DI.RAD.S_ITS ---
PROCEDURE: XR DEXA AXIAL SKELETON INDICATIONS: post fracture COMPARISON: [facility], CR, XR DEXA AXIAL SKELETON, 01/21/2018, 10:53. FINDINGS: This blank DEXA report has been sent in error by the PACS system. The correct and complete report will be forthcoming in 1-2 days. Thank you for your patience and understanding. Dictated by: Laurita Choi MD, PhD on 09/08/2020 at 17:09 Approved by: Laurita Choi MD, PhD on 09/08/2020 at 17:10
== END ==
PROVIDERS: PCP Registered Nurse Diabetes Educator; Referring Provider Registered Nurse Diabetes Educator; Visit Provider Registered Nurse Diabetes Educator
DX: M85.851 Other specified disorders of bone density and structure, right thigh (principal); Z78.0 Asymptomatic menopausal state; S82.832A Other fracture of upper and lower end of left fibula, initial encounter for closed fracture; K92.9 Disease of digestive system, unspecified; Z90.722 Acquired absence of ovaries, bilateral
CPT/HCPCS: 77080

== ENCOUNTER → 2020-09-25 08:57 | Outpatient (CLI) | payer MEDICARE, OTHER, SELFPAY ==
[2020-09-25 10:26] LABS: Cholesterol 245 mg/dL (140-199); Glucose 94 mg/dL (80-110); Triglycerides 139 mg/dL (35-150)
[2020-09-25 10:37] LABS: HDL Cholesterol 114 mg/dL (40-60); LDL Cholesterol Calculated 103 mg/dL (<100)
[2020-09-28 06:18] LABS: Alder IgE <0.10 kU/L (Class 0); Alternaria alternata IgE <0.10 kU/L (Class 0); Aspergillus fumigatus IgE <0.10 kU/L (Class 0); Box Elder IgE <0.10 kU/L (Class 0); Cladosporium herbarum IgE <0.10 kU/L (Class 0); Cockroach IgE <0.10 kU/L (Class 0); Cottonwood IgE <0.10 kU/L (Class 0); D farinae IgE <0.10 kU/L (Class 0); D pteronyssinus IgE <0.10 kU/L (Class 0); Dog Dander IgE <0.10 kU/L (Class 0); Elm Tree IgE <0.10 kU/L (Class 0); Immunoglobulin E 13 IU/mL (6-495); Mountain Cedar IgE <0.10 kU/L (Class 0); Mouse Urine Proteins IgE <0.10 kU/L (Class 0); Nettle IgE <0.10 kU/L (Class 0); Oak Tree IgE <0.10 kU/L (Class 0); Penicillium chrysogen IgE <0.10 kU/L (Class 0); Pigweed, Common IgE <0.10 kU/L (Class 0); Ragweed, Short <0.10 kU/L (Class 0); Sheep Sorrel IgE <0.10 kU/L (Class 0); Shrimp IgE <0.10 kU/L (Class 0); Silver Birch IgE <0.10 kU/L (Class 0); Timothy Grass IgE <0.10 kU/L (Class 0); Walnut Allery IgE < 0.10 kU/L (Class 0); White ash IgE <0.10 kU/L (Class 0)
[2020-09-28 09:18] LABS: Almond IgE <0.10 kU/L (Class 0); Cashew Nut IgE <0.10 kU/L (Class 0); Codfish Allergy IgE < 0.10 kU/L (Class 0); Egg White IgE <0.10 kU/L (Class 0); Hazelnut IgE <0.10 kU/L (Class 0); Milk IgE <0.10 kU/L (Class 0); Peanut IgE <0.10 kU/L (Class 0); Salmon Allergy IgE < 0.10 kU/L (Class 0); Scallop Allergy IgE < 0.10 kU/L (Class 0); Sesame seed Allergy IgE < 0.10 kU/L (Class 0); Shrimp IgE <0.10 kU/L (Class 0); Soybean IgE <0.10 kU/L (Class 0); Tuna Allergy IgE < 0.10 kU/L (Class 0); Walnut IgE <0.10 kU/L (Class 0); Wheat Allergy IgE < 0.10 kU/L (Class 0)
[2020-10-04 09:57] LABS: Cat Dander IgE <0.10
== END ==
PROVIDERS: PCP Registered Nurse Diabetes Educator; Referring Provider Registered Nurse Diabetes Educator; Visit Provider Registered Nurse Diabetes Educator
DX: L50.9 Urticaria, unspecified (principal); E78.5 Hyperlipidemia, unspecified; R73.9 Hyperglycemia, unspecified
CPT/HCPCS: 36415; 80061; 82785; 82947; 86003

== ENCOUNTER → 2021-03-08 14:31 | Outpatient (CLI) | payer MEDICARE, OTHER, SELFPAY ==
--- NOTE | 2021-03-08 14:33 | DI.MG.S_ITS ---
BILATERAL DIGITAL SCREENING MAMMOGRAM 3D/2D WITH CAD: 03/08/2021 CLINICAL: Routine screening. Comparison is made to exams dated: 04/06/2020 mammogram, 02/25/2020 mammogram, 02/22/2019 mammogram, 02/04/2019 mammogram, and 01/19/2018 mammogram - Located [facility]. The tissue of both breasts is heterogeneously dense. This may lower the sensitivity of mammography. Current study was also evaluated with a Computer Aided Detection (CAD) system. There is a biopsy clip in the left breast. No significant masses, calcifications, or other findings are seen in either breast. There has been no significant interval change. IMPRESSION: NEGATIVE There is no mammographic evidence of malignancy. A 1 year screening mammogram is recommended. This exam was interpreted at Station ID: [id number]. NOTE: For mammograms, a report in lay terms will be sent to the patient. Approximately 15% of breast malignancies will not be visualized mammographically. In the management of a palpable breast mass, a negative mammogram must not discourage biopsy of a clinically suspicious lesion. Electronically Signed By: Helio lilly/chip:03/08/2021 15:33:05 letter sent: Normal Exam ACR BI-RADS Category 1: Negative 3341F
== END ==
PROVIDERS: PCP Registered Nurse Diabetes Educator; Referring Provider Registered Nurse Diabetes Educator; Visit Provider Registered Nurse Diabetes Educator
DX: Z12.31 Encounter for screening mammogram for malignant neoplasm of breast (principal)
CPT/HCPCS: 77063; 77067

== ENCOUNTER → 2021-10-01 13:02 | Outpatient (CLI) | payer MEDICARE, OTHER, SELFPAY ==
[2021-10-01 14:36] LABS: Alanine Aminotransferase 18 IU/L (<35); Albumin 4.1 g/dL (3.5-5.0); Albumin Globulin Ratio 1.5 (1.0-2.8); Alkaline Phosphatase 65 U/L (38-126); Aspartate Aminotransferase 21 IU/L (14-36); BUN Creatinine Ratio 17.9 (6-22); Bilirubin Total 0.7 mg/dL (0.2-1.3); Blood Urea Nitrogen 12 mg/dL (7-17); Calcium 8.8 mg/dL (8.4-10.2); Carbon Dioxide 28 mmol/L (22-32); Chloride 104 mmol/L (98-107); Cholesterol 208 mg/dL (140-199); Estimated Glomerular Filt Rate > 60 mL/min (>60); Globulin 2.7 g/dL (1.7-4.1); Glucose 90 mg/dL (80-110); HDL Cholesterol 87 mg/dL (40-60); HEMOLYSIS < 15 (0-50); LDL Cholesterol Calculated 103 mg/dL (<100); Sodium 139 mmol/L (137-145); Total Protein 6.8 g/dL (6.3-8.2); Triglycerides 91 mg/dL (35-150)
== END ==
PROVIDERS: PCP Registered Nurse Diabetes Educator; Referring Provider Registered Nurse Diabetes Educator; Visit Provider Registered Nurse Diabetes Educator
DX: E03.9 Hypothyroidism, unspecified (principal); E78.5 Hyperlipidemia, unspecified; R73.9 Hyperglycemia, unspecified
CPT/HCPCS: 36415; 80053; 80061; 84443

== ENCOUNTER → 2021-10-05 12:53 | Outpatient (CLI) | payer MEDICARE, OTHER, SELFPAY | PROVIDERS: PCP Registered Nurse Diabetes Educator; Visit Provider Physician Assistant | DX: N34.3 Urethral syndrome, unspecified (principal) | CPT/HCPCS: 87077; 87086; 87186 ==

== ENCOUNTER → 2021-10-10 11:34 | Outpatient (CLI) | payer MEDICARE, OTHER, SELFPAY ==
--- NOTE | 2021-10-10 11:36 | DI.US.S_ITS ---
LIMITED ULTRASOUND OF RIGHT BREAST: 10/10/2021 CLINICAL: Palpable right breast lump. Comparison is made to exams dated: 10/10/2021 mammogram, 03/08/2021 mammogram, 02/25/2020 mammogram, 02/04/2019 mammogram, and 01/19/2018 mammogram - [facility]. Color flow and real-time ultrasound of the right breast 8 o'clock region were performed. Byrd scale images of the real-time examination were reviewed. There is a benign 0.5 cm x 0.6 cm x 0.4 cm oval simple cyst with a smooth internal wall in the right breast at 8 o'clock anterior depth 2 cm from the nipple. This oval simple cyst is anechoic with posterior acoustic enhancement. This correlates as palpated. Adjacent to this cyst, there is an additional cyst. IMPRESSION: BENIGN There is no sonographic evidence of malignancy. The 0.5 cm x 0.6 cm x 0.4 cm oval simple cyst in the right breast is benign. Return to annual mammogram screening schedule is recommended. This exam was interpreted at Station ID: [id number]. Electronically Signed By: Andrew bella/chip:10/10/2021 14:07:54 letter sent: Normal Exam Ultrasound BI-RADS: 2 Benign
--- NOTE | 2021-10-10 11:36 | DI.MG.S_ITS ---
UNILATERAL RIGHT DIGITAL DIAGNOSTIC MAMMOGRAM 3D/2D: 10/10/2021 CLINICAL: Right axilla Mass and axilla swelling. Right breast pain. Comparison is made to exams dated: 03/08/2021 mammogram, 02/25/2020 mammogram, 02/04/2019 mammogram, 03/22/2020 mammogram, and 01/19/2018 mammogram - [facility]. The tissue of right breast is heterogeneously dense. This may lower the sensitivity of mammography. No significant masses, calcifications, or other findings are seen in the breast. IMPRESSION: INCOMPLETE: NEEDS ADDITIONAL IMAGING EVALUATION There is no abnormality seen in the right breast to correspond with the palpable abnormality. There is no abnormality seen in the right axilla to correspond with the palpable abnormality in the right axilla. Targeted ultrasound is recommended for further evaluation, which will be performed immediately following this exam. This exam was interpreted at Station ID: [id number]. NOTE: For mammograms, a report in lay terms will be sent to the patient. Approximately 15% of breast malignancies will not be visualized mammographically. In the management of a palpable breast mass, a negative mammogram must not discourage biopsy of a clinically suspicious lesion. Electronically Signed By: Andrew bella/chip:10/10/2021 13:31:48 ACR BI-RADS Category 0: Incomplete [id number]
--- NOTE | 2021-10-10 11:36 | DI.US.S_ITS ---
ULTRASOUND OF RIGHT AXILLA: 10/10/2021 CLINICAL: Palpable right axilla lump. Comparison is made to exams dated: 10/10/2021 mammogram, 03/08/2021 mammogram, 02/25/2020 mammogram, 02/04/2019 mammogram, and 01/19/2018 mammogram - [facility]. Color flow and real-time ultrasound of the right axilla were performed. Byrd scale images of the real-time examination were reviewed. No significant abnormalities were seen sonographically in the right axilla. IMPRESSION: NEGATIVE There is no sonographic evidence of malignancy. There is no abnormality seen in the right breast to correspond with the palpable abnormality, however, clinical followup is recommended. Return to annual mammogram screening schedule is recommended. This exam was interpreted at Station ID: [id number]. Electronically Signed By: Andrew bella/chip:10/10/2021 14:09:13 Ultrasound BI-RADS: 1 Negative
== END ==
PROVIDERS: PCP Registered Nurse Diabetes Educator; Referring Provider Registered Nurse Diabetes Educator; Visit Provider Registered Nurse Diabetes Educator
DX: M79.89 Other specified soft tissue disorders (principal); N64.4 Mastodynia; N60.01 Solitary cyst of right breast
CPT/HCPCS: 76642; 76882; 77065; G0279

== ENCOUNTER → 2021-10-19 11:44 | Outpatient (CLI) | payer MEDICARE, OTHER, SELFPAY ==
--- NOTE | 2021-10-19 11:45 | DI.US.S_ITS ---
PROCEDURE: US PELVIC COMPLETE INDICATIONS: BLOATING TECHNIQUE: Real-time scanning was performed of the pelvic organs, with image documentation. Additional endovaginal scanning was necessary due to incomplete visualization of the adnexal and endometrial structures by transabdominal scanning. COMPARISON: None. FINDINGS: Uterus: Surgically absent. Ovaries: Both ovaries are not visualized. The patient is unsure if she is post oophorectomy. No adnexal mass visualized. Other: No pathologic free abdominal or pelvic fluid. IMPRESSION: 1. Prior hysterectomy. 2. The ovaries are not visualized, could be related to bowel gas and/or senescent change or surgically absent. No adnexal mass or pelvic free fluid visualized. We strive to produce accurate, complete, and clear reports of imaging services. To assist us in improving patient care, this report was composed using standard report templates and voice recognition software. Therefore, it may contain abnormal punctuation, insertions and/or omissions. Occasional wrong-word or sound-alike substitutions may occur. Though we review the report and make efforts to correct it, we do recommend that the report be read carefully in proper context to recognize any text inaccuracies. Dictated by: Andrew Shetty M.D. on 10/19/2021 at 17:22 Approved by: Andrew Shetty M.D. on 10/19/2021 at 17:29
== END ==
PROVIDERS: PCP Registered Nurse Diabetes Educator; Referring Provider Registered Nurse Diabetes Educator; Visit Provider Registered Nurse Diabetes Educator
DX: R10.9 Unspecified abdominal pain (principal); R35.0 Frequency of micturition; R14.0 Abdominal distension (gaseous); Z90.710 Acquired absence of both cervix and uterus
CPT/HCPCS: 76830; 76856

== ENCOUNTER 2022-08-13 11:59 | Day surgery (SDC) | payer MEDICARE, OTHER, SELFPAY ==
[2022-08-13 12:38] VITALS: BP 157/73; PULSE 63; RESP 17; TEMP 36.6; O2SAT 99; BMI 23.6
[2022-08-13] MEDS: LACTATED RINGERS 1,000 ML 200 ML IV (12:50)
--- NOTE | 2022-08-13 13:35 | P.HP_ITS ---
History of Present Illness History of Present Illness Date Patient Seen: 08/13/22 Time Patient Seen: 13:35 Chief complaint: Screening Colonoscopy Narrative: The patient presents for colorectal screening. Personal history of colonic polyps, last colonoscopy approximately 5 years ago. No personal or family history of colon cancer. On further history denies any recent gastrointestinal symptoms. No nausea, vomiting, abdominal pain, loss of appetite, unexplained weight loss, change in bowel habits, or blood per rectum. [facility] Medical History Carpal tunnel syndrome Carpal tunnel syndrome Cataracts, bilateral (2013) Cataracts, bilateral (2013) Chronic back pain Chronic back pain Chronic midline low back pain without sciatica Chronic neck pain Colon polyps (11/2010) Colon polyps (11/2010) Fibroids (~1997) Fibroids (~1997) Gastroparesis Gastroparesis H/O vaginal delivery Hyperlipemia Hyperlipemia Lower urinary tract symptoms (LUTS) Microscopic hematuria Osteopenia Palpitations Postmenopausal atrophic vaginitis Surgical History History of back surgery History of back surgery History of carpal tunnel repair Hx of blepharoplasty (2015) Hx of blepharoplasty (2015) Hx of breast surgery Hx of breast surgery Hx of cataract surgery (~2014) Hx of cataract surgery (~2014) Hx of removal of cyst Hx of removal of cyst Status post appendectomy Status post hysterectomy Status post knee surgery Family History Father Diabetes mellitus Heart disease Hypertension Grandmother Diabetes mellitus Mother Age: 91 Heart disease Hypertension High cholesterol Stomach problems Pacemaker Grandmother Heart disease Sister Age: 71 Cancer Hypertension High cholesterol Sister Age: 64 Knee problem Social History household members: none Smoking Status: Never smoker second hand exposure: No alcohol intake: never substance use type: does not use Meds Home Medications and Allergies Home Medications Medication Instructions Recorded Confirmed Type famotidine 20 mg tablet (Pepcid) 20 mg PO DAILY PRN Acid Reflux 09/20/20 08/13/22 History diclofenac sodium 1 % topical gel 4 g topical QID #200 grams 09/15/21 08/13/22 Rx sodium,potassium,mag sulfates 17.5 See Rx Instructions PO .COMPLEX 08/07/22 08/12/22 Rx gram-3.13 gram-1.6 gram oral soln #354 mL (Suprep Bowel Prep Kit) cetirizine 10 mg tablet (Zyrtec) 10 mg PO DAILY PRN pain 08/13/22 08/13/22 History diphenhydramine HCl 25 mg capsule 25 mg PO TID PRN Inflammation 08/13/22 08/13/22 History (Benadryl) multivit with 1 tab PO DAILY 08/13/22 08/13/22 History olgxlowy-fglq-DM-lutein 8 mg iron-400 mcg-300 mcg tablet (Centrum Silver Women) turmeric 400 mg capsule 1,500 mg PO 08/13/22 History Allergies Allergy/AdvReac Type Severity Reaction Status Date / Time ciprofloxacin [From CIPRO] Allergy Mild red ears Verified 08/13/22 12:28 iodine [IODINE] Allergy Mild itch Verified 08/13/22 12:28 Sulfa (Sulfonamide Allergy Mild red ears Verified 08/13/22 12:28 Antibiotics) [SULFA (SULFONAMIDE ANTIBIOTICS)] amoxicillin Allergy Unknown Verified 08/13/22 12:28 Penicillins Allergy Unknown Patient Verified 08/13/22 12:28 does not remember ibuprofen [IBUPROFEN] AdvReac Severe CHEST PAIN Verified 08/13/22 12:28 aspirin AdvReac Intermediate Upset Verified 08/13/22 12:28 stomach Exam Vital Signs (past 8 hours): - 08/13/22 12:38 Temperature 98 F Pulse Rate 63 Respiratory Rate 17 Blood Pressure 157/73 H Pulse Oximetry 99 Oxygen Delivery Method Room Air Oxygen Delivery Method Room Air Narrative Exam Narrative: General adult woman alert oriented no acute distress Assessment & Plan Assessment and plan (1) Personal history of colonic polyps: Status: Acute Assessment & Plan narrative: The patient requires colorectal screening and colonoscopy is recommended. Technical details were discussed. Risks, benefits, alternatives explained. Risks including but not limited to myocardial infarction, aspiration, bleeding, pain, missed lesion, incomplete examination, need for further radiographic studies, colonic perforation, and need for major abdominal surgery were discussed. All questions were answered to their satisfaction, and they are in agreement with this plan.
--- NOTE | 2022-08-13 13:40 | P.OP.COLON_ITS ---
Operative Date/Time/Diagnoses Date of procedure: 08/13/22 Time of procedure: 13:40 Pre-op diagnosis: Personal history of colonic polyps Procedure & Clinicians Study performed: Colonoscopy Same procedure as scheduled: Yes Indications: Personal history of colonic polyps, colorectal screening Surgeon: Ammon Pratt Procedure Notes Procedure in detail: The history and physical was performed/updated and the patient is ASA class is *. The procedure was discussed in detail with the patient. Potential risks complications including infection, bleeding, missed diagnosis, perforation, need for surgery, and were explained. Their questions were answered and inform ed consent was obtained. Patient was brought to the procedure room and placed standard monitoring equipment. The patient's vital signs were monitored continuously throughout the entire procedure. Prior to starting time-out was performed. The patient was placed in the left lateral recumbent position. Procedural sedation was administered by anesthesia. Examination began with a thorough inspection of the perianal area there was no evidence of fissures, fistulae, external hemorrhoids or cutaneous malignancy. The colonoscopy scope was then placed into the anal canal and was advanced to the cecum, which was identified by the ileocecal valve, the appendiceal orifice and the confluence of the taenia. The scope was then slowly withdrawn examining colon thoroughly in all directions, irrigating it of any residual stool. Colon was free from inflammation masses and polyps. The patient tolerated the procedure well. They will be discharged once criteria are met. The prep was of good/excellent quality. The withdrawl time was 6 minutes. Specimen(s): none sent Impression: Normal colonoscopy Post-procedure Plan for aftercare: Likely no further colonoscopy needed Disposition: same day surgery
[2022-08-13 14:00] VITALS: BP 102/46; PULSE 59; RESP 20; TEMP 36.3; O2SAT 98
[2022-08-13 14:05] VITALS: BP 93/47; PULSE 55; RESP 17; TEMP 36.3; O2SAT 98
[2022-08-13 14:10] VITALS: BP 127/64; PULSE 61; RESP 18; TEMP 36.2; O2SAT 99
== END 2022-08-13 14:26 | disposition home or self-care (01) ==
PROVIDERS: PCP Registered Nurse Diabetes Educator; Referring Provider Surgery; Visit Provider Surgery
PROC: 0DJD8ZZ Inspection of Lower Intestinal Tract, Via Natural or Artificial Opening Endoscopic (ICD-10-PCS; CPT 45378; principal; 2022-08-13 13:15)
DX: Z12.11 Encounter for screening for malignant neoplasm of colon (principal); Z86.010 Personal history of colon polyps
CPT/HCPCS: G0105

== ENCOUNTER → 2022-08-19 08:03 | Outpatient (CLI) | payer MEDICARE, OTHER, SELFPAY ==
[2022-08-19 11:16] LABS: Alanine Aminotransferase 24 IU/L (<35); Albumin 4.1 g/dL (3.5-5.0); Albumin Globulin Ratio 1.5 (1.0-2.8); Alkaline Phosphatase 65 U/L (38-126); Aspartate Aminotransferase 22 IU/L (14-36); BUN Creatinine Ratio 26.1 (6-22); Bilirubin Total 0.6 mg/dL (0.2-1.3); Blood Urea Nitrogen 18 mg/dL (7-17); Calcium 8.9 mg/dL (8.4-10.2); Carbon Dioxide 31 mmol/L (22-32); Chloride 102 mmol/L (98-107); Cholesterol 212 mg/dL (140-199); Estimated Glomerular Filt Rate > 60 mL/min (>60); Globulin 2.8 g/dL (1.7-4.1); Glucose 85 mg/dL (80-110); HDL Cholesterol 92 mg/dL (40-60); HEMOLYSIS < 15 (0-50); LDL Cholesterol Calculated 100 mg/dL (<100); Potassium 4.6 mmol/L (3.4-5.1); Sodium 137 mmol/L (137-145); Total Protein 6.9 g/dL (6.3-8.2); Triglycerides 100 mg/dL (35-150)
== END ==
PROVIDERS: PCP Registered Nurse Diabetes Educator; Referring Provider Registered Nurse Diabetes Educator; Visit Provider Registered Nurse Diabetes Educator
DX: E78.5 Hyperlipidemia, unspecified (principal)
CPT/HCPCS: 36415; 80053; 80061

== ENCOUNTER → 2022-08-30 13:48 | Outpatient (CLI) | payer MEDICARE, OTHER, SELFPAY ==
--- NOTE | 2022-08-30 | DI.MG.S_ITS ---
BILATERAL DIGITAL SCREENING MAMMOGRAM 3D/2D WITH CAD: 08/30/2022 CLINICAL: Routine screening. Comparison is made to exams dated: 10/10/2021 ultrasound, 10/10/2021 ultrasound, 10/10/2021 mammogram, 03/08/2021 mammogram, 02/25/2020 mammogram, and 02/04/2019 mammogram - [facility]. Both breasts are heterogeneously dense, which may obscure small masses (category c / 51-75% glandular tissue). Current study was also evaluated with a Computer Aided Detection (CAD) system. There is a biopsy clip in the left breast. No significant masses, calcifications, or other findings are seen in either breast. There has been no significant interval change. IMPRESSION: NEGATIVE There is no mammographic evidence of malignancy. A 1 year screening mammogram is recommended. Based on the Tyrer Cuzick model (a risk assessment model) the patient's lifetime risk is 5.7% and her 10 year risk is 4.2%. According to the ACR, ACS, and NCCN guidelines, an annual breast MRI exam along with mammogram is recommended if the patient's lifetime risk is 20% or greater. This exam was interpreted at Station ID: [id number]. NOTE: For mammograms, a report in lay terms will be sent to the patient. Approximately 15% of breast malignancies will not be visualized mammographically. In the management of a palpable breast mass, a negative mammogram must not discourage biopsy of a clinically suspicious lesion. Electronically Signed By: Rosa Maria andrew/chip:08/30/2022 16:20:06 letter sent: Normal Exam ACR BI-RADS Category 1: Negative 3341F
== END ==
PROVIDERS: PCP Registered Nurse Diabetes Educator; Referring Provider Registered Nurse Diabetes Educator; Visit Provider Registered Nurse Diabetes Educator
DX: Z12.31 Encounter for screening mammogram for malignant neoplasm of breast (principal)
CPT/HCPCS: 77063; 77067

== ENCOUNTER → 2022-09-11 11:48 | Outpatient (CLI) | payer MEDICARE, OTHER, SELFPAY ==
--- NOTE | 2022-09-11 11:49 | DI.US.S_ITS ---
PROCEDURE: US SOFT TISSUE HEAD AND NECK INDICATIONS: EVAL SOFT MASS NEAR RIGHT CLAVICLE BASE OF NECK TECHNIQUE: Real-time scanning was performed of the neck region of interest, with image documentation. COMPARISON: [facility], US, US THYROID, 05/20/2019, 10:55. FINDINGS: No significant sonographic abnormality is seen in the area of the patient indicated palpable abnormality near the clavicle. A mixed cystic and solid nodule measuring up to 2.2 cm is seen within the right thyroid. The solid component is isoechoic to hyperechoic, waited until, and demonstrates relatively smooth margins without internal echogenic foci (TIRADS category 2). This likely corresponds with nodule #3 on the prior ultrasound from 05/20/2019 with increased size of the cystic component, but no significant increase in size of the solid component. IMPRESSION: 1. No significant sonographic abnormality and the region of the palpable abnormality in the right supraclavicular region. There is continued clinical concern, further evaluation may be considered with targeted MRI or CT. 2. Mixed cystic and solid right thyroid nodule incidentally noted without suspicious features. Recommend correlation with prior final aspiration results and possible follow-up thyroid ultrasound. Approved by: Andrew Dawson M.D. on 09/11/2022 at 15:42
== END ==
PROVIDERS: PCP Registered Nurse Diabetes Educator; Referring Provider Registered Nurse Diabetes Educator; Visit Provider Registered Nurse Diabetes Educator
DX: E04.1 Nontoxic single thyroid nodule (principal)
CPT/HCPCS: 76536

== ENCOUNTER → 2022-09-20 12:30 | Outpatient (CLI) | payer MEDICARE, OTHER, SELFPAY ==
--- NOTE | 2022-09-20 | DI.CT.S_ITS ---
PROCEDURE: CT SINUS SCREEN WO CON INDICATIONS: HEADACHE/FACIAL PAIN/PANSINUSITIS TECHNIQUE: Noncontrast 3.0 mm axial images acquired from the frontal sinuses to the mid-sella, with coronal and sagittal reformats. For radiation dose reduction, the following was used: automated exposure control, adjustment of mA and/or kV according to patient size. COMPARISON: None. FINDINGS: Image quality: Excellent. Maxillary Sinuses: No bony remodeling or destruction. Sinuses are clear. Ethmoid Air Cells: No bony remodeling or destruction. Sinuses are clear. Sphenoid Sinuses: No bony remodeling or destruction. Sinuses are clear. Frontal Sinuses: No bony remodeling or destruction. Sinuses are clear. Ostiomeatal Complexes: Ostiomeatal complexes are patent. No Kady cells. Miscellaneous: Incidental pneumatization of the right middle turbinate. Mild nasal septal bowing to the right IMPRESSION: Unremarkable CT paranasal sinus Approved by: Zackery Valenzuela M.D. on 09/20/2022 at 18:43
== END ==
PROVIDERS: PCP Registered Nurse Diabetes Educator; Referring Provider Otolaryngology; Visit Provider Otolaryngology
DX: R51.9 Headache, unspecified (principal); J32.4 Chronic pansinusitis
CPT/HCPCS: 70486

== ENCOUNTER → 2022-10-02 13:55 | Outpatient (CLI) | payer MEDICARE, OTHER, SELFPAY ==
--- NOTE | 2022-10-02 13:56 | DI.US.S_ITS ---
PROCEDURE: US THYROID INDICATIONS: reeval TECHNIQUE: Real-time scanning was performed of the thyroid gland, with image documentation. COMPARISON: [facility], US, US SOFT TISSUE HEAD AND NECK, 09/11/2022, 12:23. [facility], US, US THYROID, 05/20/2019, 10:55. FINDINGS: Right: Thyroid lobe measures 4.2 x 2.6 x 2.1 cm, and is homogeneous in echotexture. Left: Thyroid lobe measures 4.3 x 1.6 x 2.0 cm, and is homogenous in echotexture. Isthmus: 4 mm thick. Nodule number: 1 Location: Left inferior Size: 2.0 x 1.1 x 1.5 cm compared to 3.1 x 2.5-2.7 cm. Composition: Solid Echogenicity: Hypoechoic Shape: wider than tall. Margins: Smooth Echogenic foci: None Total points: 4 ACR TI-RADS category: 4 Nodule number: 2 Location: Isthmus left Size: 1.2 x 0.5 x 1.2 cm compared to 1.4 x 0.6 x 1.1 cm. Composition: Solid Echogenicity: Hypoechoic Shape: wider than tall. Margins: Smooth Echogenic foci: None Total points: 4 ACR TI-RADS category: 4 Nodule number: 3 Location: Superior right Size: 2.1 x 1.3 x 2.1 cm compared to 1.5 x 1.2 x 1.2 cm. Composition: Predominantly solid Echogenicity: Hypoechoic Shape: wider than tall. Margins: Smooth Echogenic foci: None Total points: 4 ACR TI-RADS category: 4 Nodule number: 4 Location: Right inferior Size: 1.0 x 0.7 x 0.9 cm compared to 2.1 x 1.4 x 1.4 cm. Composition: Predominantly solid Echogenicity: Hypoechoic Shape: wider than tall. Margins: Irregular Echogenic foci: None Total points: 4 ACR TI-RADS category: 4 Nodule number: 5 Previous right superior lateral nodule is not visualized. Nodule number: 6 Location: Superior left Size: 1.4 x 1.3 x 1.3 cm. Composition: Solid Echogenicity: Hypoechoic Shape: wider than tall. Margins: Smooth Echogenic foci: Punctate Total points: 7 ACR TI-RADS category: 5 IMPRESSION: Nodule 3 is considered category 4 and has demonstrated interval increase in size. FNA is recommended. Previously identified nodule 5 is no longer visualized. Nodule 6 is new considered category 4. Secondary to size, interval follow-up at 1, 2, 3 and 5 years from initial visualization is recommended. Lesions 1 and 4 demonstrate interval decrease in size. ACR TI-RADS definitions and recommendations: TI-RADS 1 (benign): 0 points. FNA not needed. TI-RADS 2 (not suspicious): 2 points. FNA not needed. TI-RADS 3 (mildly suspicious): 3 points. * FNA if 2.5 cm or larger, follow up if 1.5 cm or larger (at 1, 3, and 5 years). TI-RADS 4 (moderately suspicious): 4-6 points. * FNA if 1.5 cm or larger, follow up if 1 cm or larger (at 1, 2, 3, and 5 years). TI-RADS 5 (highly suspicious): 7 points or more. * FNA if 1 cm or larger, follow up if 0.5 cm or larger (every year for 5 years). Dictated by: Natalia Moore M.D. on 10/02/2022 at 20:23 Approved by: Natalia Moore M.D. on 10/02/2022 at 20:28
== END ==
PROVIDERS: PCP Registered Nurse Diabetes Educator; Referring Provider Registered Nurse Diabetes Educator; Visit Provider Registered Nurse Diabetes Educator
DX: E04.2 Nontoxic multinodular goiter (principal)
CPT/HCPCS: 76536

== ENCOUNTER → 2022-10-31 14:04 | Outpatient (CLI) | payer MEDICARE, OTHER, SELFPAY ==
--- NOTE | 2022-10-31 14:04 | DI.US.S_ITS ---
PROCEDURE: US THYROID INDICATIONS: NODULE 3 ASPIRATION CONSULT TECHNIQUE: Real-time scanning was performed of the thyroid gland, with image documentation. COMPARISON: [facility], US, US FINE NEEDLE ASPIRATION, 06/09/2019, 9:01. [facility], US, US SOFT TISSUE HEAD AND NECK, 09/11/2022, 12:23. [facility], US, US THYROID, 10/02/2022, 14:19. [facility], US, US THYROID, 05/20/2019, 10:55. FINDINGS: The patient is here for ultrasound-guided fine needle aspiration biopsy of a mixed solid and cystic nodule in the right thyroid lobe. There is prominent vessel tripping over the solid component, making biopsy unsafe. I have discussed the situation with the patient. IMPRESSION: 1. Fine needle aspiration biopsy of the mixed solid and cystic right thyroid nodule is not performed because of a prominent vessel in the way of the needle. After discussing with the patient, a short-term follow-up ultrasound in 6 months is recommended. ACR TI-RADS definitions and recommendations: TI-RADS 1 (benign): 0 points. FNA not needed. TI-RADS 2 (not suspicious): 2 points. FNA not needed. TI-RADS 3 (mildly suspicious): 3 points. * FNA if 2.5 cm or larger, follow up if 1.5 cm or larger (at 1, 3, and 5 years). TI-RADS 4 (moderately suspicious): 4-6 points. * FNA if 1.5 cm or larger, follow up if 1 cm or larger (at 1, 2, 3, and 5 years). TI-RADS 5 (highly suspicious): 7 points or more. * FNA if 1 cm or larger, follow up if 0.5 cm or larger (every year for 5 years). Dictated by: Bridget Main M.D. on 10/31/2022 at 16:19 Approved by: Bridget Main M.D. on 10/31/2022 at 16:24
== END ==
PROVIDERS: PCP Registered Nurse Diabetes Educator; Referring Provider Registered Nurse Diabetes Educator; Visit Provider Registered Nurse Diabetes Educator
DX: E04.1 Nontoxic single thyroid nodule (principal)
CPT/HCPCS: 76536

== ENCOUNTER → 2023-04-18 14:38 | Outpatient (CLI) | payer MEDICARE, OTHER, SELFPAY ==
--- NOTE | 2023-04-18 14:40 | DI.US.S_ITS ---
PROCEDURE: US THYROID INDICATIONS: 6 MONTH FOLLOW UP NODULES TECHNIQUE: Real-time scanning was performed of the thyroid gland, with image documentation. COMPARISON: [facility], US, US THYROID, 10/02/2022, 14:19. [facility], US, US THYROID, 10/31/2022, 14:27. FINDINGS: Right: Thyroid lobe measures 5.8 x 2.6 x 2.4 cm, and is homogeneous in echotexture. Left: Thyroid lobe measures 6 x 1.7 x 2.2 cm, and is homogenous in echotexture. Isthmus: 0.3 cm thick. Nodule number: 1 Location: Left inferior Size: 2 x 1.1 x 1.5 cm, previously 2 x 1.1 x 1.5 cm. Composition: Solid Echogenicity: Hypoechoic Shape: wider than tall. Margins: Smooth Echogenic foci: None Total points: 4 ACR TI-RADS category: 4 Nodule number: 2 Location: Left mid (isthmus) Size: 1.2 x 0.5 x 1.2 cm, previously 1.2 x 0.5 x 1.2 cm. Composition: Solid Echogenicity: Hypoechoic Shape: wider than tall. Margins: Smooth Echogenic foci: None Total points: 4 ACR TI-RADS category: 4 Nodule number: 3 Location: Right superior Size: 2.1 x 1.3 x 2 cm, previously 2.1 x 1.3 x 2.1 cm, remotely 1.5 x 1.2 x 1.2 cm Composition: Predominantly solid Echogenicity: Hypoechoic Shape: wider than tall. Margins: Smooth Echogenic foci: None Total points: 4 ACR TI-RADS category: 4 Nodule number: 4 Location: Right inferior Size: 1 x 0.8 x 1.2 cm, previously 1 x 0.7 x 0.9 cm. Composition: Predominantly solid Echogenicity: Hypoechoic Shape: wider than tall. Margins: Irregular Echogenic foci: None Total points: 4 ACR TI-RADS category: 4 Nodule number: 5 Location: Not seen Nodule number: 6 Location: Left superior Size: 1.2 x 1.1 x 0.7 cm, previously 1.4 x 1.3 x 1.3 cm. Composition: Solid Echogenicity: Hypoechoic Shape: wider than tall. Margins: Smooth Echogenic foci: Punctate Total points: 7 ACR TI-RADS category: 5 IMPRESSION: 1. Nodule 3 is stable in size measuring 2.1 x 1.3 x 2 cm, previously 2.1 x 1.3 x 2.1 cm and is TIRADS- 4. Recommend repeat ultrasound in 6 months. If size increases, consider FNA at [facility]. 2. Nodule 6 is TIRADS-5. Recommend interval follow-up at 1, 2, 3 and 5 years from initial visualization. ACR TI-RADS definitions and recommendations: TI-RADS 1 (benign): 0 points. FNA not needed. TI-RADS 2 (not suspicious): 2 points. FNA not needed. TI-RADS 3 (mildly suspicious): 3 points. * FNA if 2.5 cm or larger, follow up if 1.5 cm or larger (at 1, 3, and 5 years). TI-RADS 4 (moderately suspicious): 4-6 points. * FNA if 1.5 cm or larger, follow up if 1 cm or larger (at 1, 2, 3, and 5 years). TI-RADS 5 (highly suspicious): 7 points or more. * FNA if 1 cm or larger, follow up if 0.5 cm or larger (every year for 5 years). Dictated by: Chase Earl M.D. on 04/18/2023 at 18:12 Approved by: Chase Earl M.D. on 04/19/2023 at 11:30
== END ==
PROVIDERS: PCP Registered Nurse Diabetes Educator; Referring Provider Registered Nurse Diabetes Educator; Visit Provider Registered Nurse Diabetes Educator
DX: E04.2 Nontoxic multinodular goiter (principal)
CPT/HCPCS: 76536

== ENCOUNTER → 2023-06-02 11:26 | Outpatient (CLI) | payer OTHER, SELFPAY ==
--- NOTE | 2023-06-02 | DI.MG.S_ITS ---
BILATERAL DIGITAL DIAGNOSTIC MAMMOGRAM 3D/2D: 06/02/2023 CLINICAL: RIGHT BREAST PAIN. Comparison is made to exams dated: 08/30/2022 mammogram, 10/10/2021 mammogram, 03/08/2021 mammogram, 03/22/2020 mammogram, and 02/25/2020 mammogram - [facility]. Both breasts are heterogeneously dense, which may obscure small masses (category c / 51-75% glandular tissue). The right breast has post-operative findings. There is a biopsy site marker on the left breast. No significant masses, calcifications, or other findings are seen in either breast. IMPRESSION: INCOMPLETE: NEEDS ADDITIONAL IMAGING EVALUATION There is no abnormality seen in the right breast to correspond with the areas of clinical concern (multifocal pain), however, ultrasound is recommended. Based on the Tyrer Cuzick model (a risk assessment model) the patient's lifetime risk is 5.3% and her 10 year risk is 4.3%. According to the ACR, ACS, and NCCN guidelines, an annual breast MRI exam along with mammogram is recommended if the patient's lifetime risk is 20% or greater. This exam was interpreted at Station ID: [id number]. NOTE: For mammograms, a report in lay terms will be sent to the patient. Approximately 15% of breast malignancies will not be visualized mammographically. In the management of a palpable breast mass, a negative mammogram must not discourage biopsy of a clinically suspicious lesion. Electronically Signed By: Dino Zavaleta M.D. lc/:06/02/2023 13:43:09 ACR BI-RADS Category 0: Incomplete 3340F
--- NOTE | 2023-06-02 11:27 | DI.US.S_ITS ---
LIMITED ULTRASOUND OF RIGHT BREAST: 06/02/2023 CLINICAL: Focal right breast pain. Comparison is made to exams dated: 06/02/2023 mammogram, 08/30/2022 mammogram, 10/10/2021 ultrasound, 10/10/2021 ultrasound, 10/10/2021 mammogram, and 03/08/2021 mammogram - [facility]. Color flow and real-time ultrasound of the right breast 8 o'clock, 10 o'clock, and retroareolar regions were performed. Byrd scale images of the real-time examination were reviewed. There is a possible 0.3 cm x 0.4 cm x 0.4 cm complicated cyst in the right breast at 8 o'clock middle depth 2 cm from the nipple. This correlates as an incidental finding. There also is benign duct ectasia in the right breast central to the nipple in the retroareolar region. This correlates as an incidental finding. IMPRESSION: PROBABLY BENIGN The possible 0.3 cm x 0.4 cm x 0.4 cm complicated cyst in the right breast at 8 o'clock middle depth is probably benign. This is incidental. A follow-up ultrasound in 6 months is recommended to demonstrate stability. The duct ectasia in the right breast central to the nipple in the retroareolar region is benign. This is incidental. There is no abnormality seen in the right breast to correspond with the area of clinical concern (multifocal pain), however, clinical correlation and clinical followup are recommended. This exam was interpreted at Station ID: [id number]. Electronically Signed By: Dino Zavaleta M.D. lc/:06/02/2023 13:45:09 letter sent: Followup Recommended Ultrasound BI-RADS: 3 Probably benign
== END ==
PROVIDERS: PCP Registered Nurse Diabetes Educator; Referring Provider Registered Nurse Diabetes Educator; Visit Provider Registered Nurse Diabetes Educator
DX: N64.4 Mastodynia; R92.333 Mammographic heterogeneous density, bilateral breasts; R92.2 Inconclusive mammogram
CPT/HCPCS: 76642; 77066; G0279

== ENCOUNTER → 2023-08-25 11:21 | Outpatient (CLI) | payer MEDICARE, OTHER, SELFPAY ==
--- NOTE | 2023-08-25 11:22 | DI.RAD.S_ITS ---
PROCEDURE: XR CHEST 2V INDICATIONS: Cough TECHNIQUE: 2 views of the chest were acquired. COMPARISON: [facility], CR, XR CHEST 2V, 05/16/2020, 11:42. FINDINGS: Surgical changes and devices: None. Lungs and pleura: Lungs are clear. No pleural effusions or pneumothorax. Mediastinum: Mediastinal contours are normal. Heart size is normal. Bones and chest wall: No suspicious bony abnormalities. Soft tissues appear unremarkable. IMPRESSION: No acute cardiopulmonary abnormality is seen. Dictated by: Bridget Main M.D. on 08/25/2023 at 16:54 Approved by: Bridget Main M.D. on 08/25/2023 at 16:54
== END ==
PROVIDERS: PCP Registered Nurse Diabetes Educator; Referring Provider Nurse Practitioner Family; Visit Provider Nurse Practitioner Family
DX: R05.9 Cough, unspecified (principal)
CPT/HCPCS: 71046

== ENCOUNTER → 2023-09-30 11:51 | Outpatient (CLI) | payer MEDICARE, SELFPAY ==
--- NOTE | 2023-09-30 11:53 | DI.US.S_ITS ---
PROCEDURE: US THYROID INDICATIONS: 6 month f/u nodule TECHNIQUE: Real-time scanning was performed of the thyroid gland, with image documentation. COMPARISON: [facility], US, US THYROID, 04/18/2023, 15:36. FINDINGS: Thyroid: Right lobe measures 5.8 x 2.2 x 1.9 cm. Left lobe measures 5.1 x 2.0 x 1.7 cm. Isthmus is 0.6 cm thick. Echotexture is heterogeneous. Nodule number: 1 Location: Left midpole Size: 2.1 x 1.1 x 1.3 cm. Previously 2.0 x 1.1 x 1.5 cm. Composition: Solid Echogenicity: Isoechoic Shape: wider than tall. Margins: Smooth Echogenic foci: None Total points: 3 ACR TI-RADS category: 3 Nodule number: 2 Location: Right superior pole Size: 2.2 x 1.6 x 1.9 cm. Previously 2.1 x 1.3 x 2.0 cm. Composition: Mixed cystic and solid Echogenicity: Isoechoic Shape: wider than tall. Margins: Smooth Echogenic foci: None Total points: 2 ACR TI-RADS category: 1 Nodule number: 3 Location: Left superior pole Size: 1.4 x 1.2 x 0.6 cm. Previously 1.2 x 1.7 x 0.7 cm. Composition: Spongiform ACR TI-RADS category: 1 IMPRESSION: The previously described nodule 1 demonstrates benign features on today's examination, most consistent with a tire adds 3 lesion. Follow-up in 1 year is recommended. Remaining measured nodules are benign. ACR TI-RADS definitions and recommendations: TI-RADS 1 (benign): 0 points. FNA not needed. TI-RADS 2 (not suspicious): 2 points. FNA not needed. TI-RADS 3 (mildly suspicious): 3 points. * FNA if 2.5 cm or larger, follow up if 1.5 cm or larger (at 1, 3, and 5 years). TI-RADS 4 (moderately suspicious): 4-6 points. * FNA if 1.5 cm or larger, follow up if 1 cm or larger (at 1, 2, 3, and 5 years). TI-RADS 5 (highly suspicious): 7 points or more. * FNA if 1 cm or larger, follow up if 0.5 cm or larger (every year for 5 years). Dictated by: Wong Espitia M.D. on 09/30/2023 at 15:08 Approved by: Wong Espitia M.D. on 09/30/2023 at 15:11
== END ==
LOC: US 11:52
PROVIDERS: PCP Registered Nurse Diabetes Educator; Referring Provider Registered Nurse Diabetes Educator; Visit Provider Registered Nurse Diabetes Educator
DX: E04.2 Nontoxic multinodular goiter (principal)
CPT/HCPCS: 76536

== ENCOUNTER → 2023-10-20 06:58 | Outpatient (CLI) | payer MEDICARE, OTHER, SELFPAY ==
[2023-10-20 08:26] LABS: Alanine Aminotransferase 20 IU/L (<35); Albumin 4.1 g/dL (3.5-5.0); Albumin Globulin Ratio 1.4 (1.0-2.8); Alkaline Phosphatase 66 U/L (38-126); Aspartate Aminotransferase 20 IU/L (14-36); Bilirubin Total 0.7 mg/dL (0.2-1.3); Blood Urea Nitrogen 17 mg/dL (7-17); Calcium 8.9 mg/dL (8.4-10.2); Carbon Dioxide 28 mmol/L (22-32); Chloride 107 mmol/L (98-107); Cholesterol 241 mg/dL (140-199); Estimated Glomerular Filt Rate > 60 mL/min (>60); Globulin 2.9 g/dL (1.7-4.1); Glucose 101 mg/dL (80-110); HDL Cholesterol 88 mg/dL (40-60); HEMOLYSIS < 15 (0-50); LDL Cholesterol Calculated 133 mg/dL (<100); Potassium 4.6 mmol/L (3.4-5.1); Sodium 139 mmol/L (137-145); Triglycerides 101 mg/dL (35-150)
== END ==
PROVIDERS: PCP Registered Nurse Diabetes Educator; Referring Provider Registered Nurse Diabetes Educator; Visit Provider Registered Nurse Diabetes Educator
DX: E78.5 Hyperlipidemia, unspecified (principal); R10.13 Epigastric pain; R31.9 Hematuria, unspecified
CPT/HCPCS: 36415; 80053; 80061

== ENCOUNTER → 2023-11-03 14:00 | Outpatient (CLI) | payer MEDICARE, OTHER, SELFPAY ==
--- NOTE | 2023-11-03 14:01 | DI.RAD.S_ITS ---
PROCEDURE: XR DEXA AXIAL SKELETON INDICATIONS: reeval COMPARISON: [facility], CR, XR DEXA AXIAL SKELETON, 09/08/2020, 13:24. [facility], CR, XR DEXA AXIAL SKELETON, 01/21/2018, 10:53. FINDINGS: Lumbar Spine: Bone mineral density 1.088 g/cm2, T score 0.4, previously 0.8. Left Hip: Bone mineral density 0.793 g/cm2, T score -1.2, previously -1.3. Left Femoral Neck: Bone mineral density 0.628 g/cm2, T score -2.0, previously -1.1. Right Hip: Bone mineral density 0.837 g/cm2, T score -0.9, previously -0.8. Right Femoral Neck: Bone mineral density 0.652 g/cm2, T score -1.8, previously -1.7. Fracture Risk Calculation (when applicable): 10-year fracture risk of a major osteoporotic fracture 11 percent and of a hip fracture 2.4 percent. (T score greater or equal to -1.0 to: NORMAL) (T score from -1.1 to -2.4: OSTEOPENIA) (T score less than or equal to -2.5: OSTEOPOROSIS) IMPRESSION: Osteopenia. Follow-up guidelines as follows: Osteoporosis: Consider a repeat DEXA and Vertebral Fracture Assessment (VFA) exam in 2 years or sooner if medically necessary, to reassess this patient's status. Osteopenia: Consider a repeat DEXA in 2-3 years to reassess this patient's status, or if there is a new clinical indication. Normal: Consider a repeat DEXA in 5 years or sooner, or if there is a new clinical indication. All treatment decisions require clinical judgment and consideration of individual patient factors, including patient preferences, comorbidities, previous drug use, risk factors not captured in the FRAX model (e.g., frailty, falls, vitamin D deficiency, increased bone turnover, interval significant decline in bone density ) and possible under- or over-estimation of fracture risk by FRAX. In addition, the NOF Guide recommends that FDA-approved medical therapies be considered in postmenopausal women and men age >= 50 years with a: * Hip or vertebral (clinical or morphometric) fracture * T-score of <=-2.5 at the spine or hip * Ten-year fracture probability by FRAX of >= 3% for hip fracture or >=20% for major osteoporotic fracture. People with diagnosed cases of osteoporosis or at high risk for fracture should have regular bone mineral density tests. For patients eligible for Medicare, routine testing is allowed once every 2 years. The testing frequency can be increased to one year for patients who have rapidly progressing disease, those who are receiving or discontinuing medical therapy to restore bone mass, or have additional risk factors. Dictated by: Wong Espitia M.D. on 11/03/2023 at 16:50 Approved by: Wong Espitia M.D. on 11/03/2023 at 16:52
== END ==
PROVIDERS: PCP Registered Nurse Diabetes Educator; Referring Provider Registered Nurse Diabetes Educator; Visit Provider Registered Nurse Diabetes Educator
DX: M85.89 Other specified disorders of bone density and structure, multiple sites
CPT/HCPCS: 77080

== ENCOUNTER → 2023-11-27 13:53 | Outpatient (CLI) | payer MEDICARE, OTHER, SELFPAY ==
--- NOTE | 2023-11-27 14:30 | DI.US.S_ITS ---
LIMITED ULTRASOUND OF RIGHT BREAST AND AXILLA: 11/27/2023 CLINICAL: Patient returns for short term follow-up of a probably benign mass in the right breast. Comparison is made to exams dated: 06/02/2023 ultrasound, 06/02/2023 mammogram, 08/30/2022 mammogram, 10/10/2021 ultrasound, 10/10/2021 ultrasound, and 10/10/2021 mammogram - [facility]. Color flow and real-time ultrasound of the right breast 8 o'clock, and axilla regions were performed. Byrd scale images of the real-time examination were reviewed. Redemonstration of previously described possible 0.3 cm x 0.4 cm x 0.4 cm oval complicated cyst in the right breast at 8 o'clock middle depth 4 cm from the nipple. Of note, this was previously labeled at as '2cm from the nipple'. This oval complicated cyst is hypoechoic with internal echoes. This abnormality is not significantly changed and correlates as an incidental finding. Color flow imaging demonstrates that there is an adjacent vascularity. IMPRESSION: PROBABLY BENIGN The possible 0.3 cm x 0.4 cm x 0.4 cm oval complicated cyst in the right breast is not significantly changed and is probably benign. A follow-up bilateral mammogram and a right ultrasound in 6 months is recommended to demonstrate stability. Findings and recommendations were conveyed to the patient during today's evaluation. This exam was interpreted at Station ID: [id number]. Electronically Signed By: Helio Cleary M.D. aty/:11/27/2023 14:54:44 letter sent: Followup Recommended Ultrasound BI-RADS: 3 Probably benign
== END ==
PROVIDERS: PCP Registered Nurse Diabetes Educator; Referring Provider Registered Nurse Diabetes Educator; Visit Provider Registered Nurse Diabetes Educator
DX: N63.13 Unspecified lump in the right breast, lower outer quadrant (principal); N60.01 Solitary cyst of right breast
CPT/HCPCS: 76642

== ENCOUNTER → 2024-07-15 11:35 | Outpatient (CLI) | payer MEDICARE, OTHER, SELFPAY ==
--- NOTE | 2024-07-15 11:39 | DI.US.S_ITS ---
US breast RT limited, MM diagnostic mammo BI: 07/15/2024 BI-RADS: 2 CLINICAL: 74-year old female for bilateral diagnostic mammogram and right diagnostic breast ultrasound. Tyrer-Cuzick lifetime risk of 3.5%. No personal or first-degree family history of breast cancer. The patient had a prior left breast biopsy. PRIOR EXAMS 11/27/2023, 06/02/2023, 08/30/2022, 10/10/2021, 03/08/2021, 04/06/2020, 03/22/2020, 02/25/2020, 02/22/2019, 02/04/2019, 01/19/2018, 01/18/2016, 01/08/2016. MAMMOGRAPHY TECHNIQUE: 2D and 3D (tomosynthesis) digital mammographic views obtained, with additional images as needed for full coverage. Current study was also evaluated with a Computer Aided Detection (CAD) system. ULTRASOUND TECHNIQUE Real-time choi scale and color doppler imaging of the area of clinical interest was performed with image documentation. TARGETED Right Breast Ultrasound: Real-time ultrasound exam was performed focused to area of clinical and/or imaging concern. DENSITY C. The breasts are heterogeneously dense, which may obscure small masses. MAMMOGRAPHY FINDINGS Right: Benign-appearing calcification noted on the right. There are no suspicious masses, calcifications, or other findings in the breast. No significant change from comparison. Left: Biopsy marker present on the left. Benign-appearing calcification noted on the left. There are no suspicious masses, calcifications, or other findings in the breast. No significant change from comparison. ULTRASOUND FINDINGS Right: Lower Outer at 8:00, 4 cm from nipple, measuring 0.4 x 0.4 x 0.3 cm: There is a complicated cyst present. This finding is unchanged dating back to 10/10/2021 (previously labeled as 8:00, 2 cm from the nipple). This finding has demonstrated more than two years of stability and is consistent with a benign etiology. IMPRESSION: * No evidence of malignancy with benign findings. RECOMMENDATIONS Bilateral * Annual screening mammography. OVERALL ASSESSMENT CATEGORY BI-RADS-2: Benign. The [employer] recommends annual screening mammography beginning at age 40 for women with average risk of breast cancer. ELECTRONICALLY SIGNED: Linda Mena M.D. on 07/15/2024 at 04:35:52 PM PT Interpreting Station ID: [id number]
== END ==
LOC: MAMMO 11:38
PROVIDERS: PCP Registered Nurse Diabetes Educator; Referring Provider Registered Nurse Diabetes Educator; Visit Provider Registered Nurse Diabetes Educator
DX: R92.1 Mammographic calcification found on diagnostic imaging of breast (principal); R92.8 Other abnormal and inconclusive findings on diagnostic imaging of breast; N63.10 Unspecified lump in the right breast, unspecified quadrant; R92.333 Mammographic heterogeneous density, bilateral breasts; N60.01 Solitary cyst of right breast
CPT/HCPCS: 76642; 77066; G0279

== ENCOUNTER → 2024-09-20 14:10 | Outpatient (CLI) | payer MEDICARE, OTHER, SELFPAY ==
--- NOTE | 2024-09-20 14:11 | DI.US.S_ITS ---
PROCEDURE: US THYROID INDICATIONS: 1 yr f/u thyroid nodule TECHNIQUE: Real-time scanning was performed of the thyroid gland, with image documentation. COMPARISON: [facility], US, US THYROID, 10/02/2022, 14:19. [facility], US, US THYROID, 05/20/2019, 10:55. [facility], US, US THYROID, 09/30/2023, 12:24. FINDINGS: Thyroid: Right lobe measures 6.0 x 2.8 x 2.5 cm. Left lobe measures 6.2 x 2.3 x 1.6 cm. Isthmus is 0.6 cm thick. Echotexture is heterogeneous. Multiple solid pulmonary nodules are again seen, many of which are spongiform. Largest are described below: Nodule number: 1 Location: Left superior thyroid Size: 1.8 x 1.2 x 1.2 cm. Composition: Spongiform ACR TI-RADS category: 1 Nodule number: 2 Location: Right thyroid midpole Size: 2.5 x 2.4 x 2.0 cm. Composition: Mixed solid and cystic Echogenicity: Isoechoic Shape: wider than tall. Margins: Smooth Echogenic foci: None Total points: 2 ACR TI-RADS category: 2 Nodule number: 3 Location: Left inferior thyroid Size: 2.1 x 1.5 x 1.1 cm. Previously 2.1 x 1.3 x 1.1 centimeter. Composition: Solid Echogenicity: Hypoechoic Shape: wider than tall. Margins: Smooth Echogenic foci: None Total points: 4 ACR TI-RADS category: 4 IMPRESSION: Multinodular thyroid. The majority of the nodules are spongiform, and therefore benign. Thyroid nodule 3 (located on the inferior pole of the left thyroid lobe) does meet size criteria for biopsy. ACR TI-RADS definitions and recommendations: TI-RADS 1 (benign): 0 points. FNA not needed. TI-RADS 2 (not suspicious): 2 points. FNA not needed. TI-RADS 3: 3 points. * FNA if 2.5 cm or larger, follow up if 1.5 cm or larger (at 1, 3, and 5 years). TI-RADS 4: 4-6 points. * FNA if 1.5 cm or larger, follow up if 1 cm or larger (at 1, 2, 3, and 5 years). TI-RADS 5: 7 points or more. * FNA if 1 cm or larger, follow up if 0.5 cm or larger (every year for 5 years). Dictated by: Wong Espitia M.D. on 09/21/2024 at 10:31 Approved by: Wong Espitia M.D. on 09/21/2024 at 10:39
== END ==
PROVIDERS: PCP Registered Nurse Diabetes Educator; Referring Provider Registered Nurse Diabetes Educator; Visit Provider Registered Nurse Diabetes Educator
DX: E04.1 Nontoxic single thyroid nodule (principal); E04.2 Nontoxic multinodular goiter
CPT/HCPCS: 76536

== ENCOUNTER → 2024-10-25 13:23 | Outpatient (CLI) | payer MEDICARE, OTHER, SELFPAY ==
--- NOTE | 2024-10-25 | PATH_ITS ---
Note [facility] Accession Number: [id number] TESTS RESULT FLAG UNITS REF RANGE LAB Clinician Provided Cytology Information No. of containers..01 Other (Miscellaneous) No. of containers..02 Previously Prepared Cytology Slide Source: INFERIOR LEFT THYROID NODULE DIAGNOSIS: INFERIOR LEFT THYROID NODULE, FINE NEEDLE ASPIRATION. BENIGN. BETHESDA CATEGORY II. SPECIMEN CONSISTS OF BENIGN FOLLICULAR CELLS, HEMOSIDERIN-LADEN MACROPHAGES, COLLOID, AND BLOOD. THIS PATTERN IS CONSISTENT WITH FOLLICULAR NODULAR DISEASE. Pathologist ICD10: 01 E04.1 Signed out by: Mark Flannery MD, Pathologist NPI- [id number] Performed by: Steve Kemp, [employer] ([facility]) Gross description: 30 CC, YELLOW, CLEAR RECIEVED: IN CYTOLYT WITH 6 ALCOHOL FIXED AND 6 QUICK STAINED SLIDES ALSO 1 RNA VIAL WILL ON 01-08-2025.VO /VDU 10/26/2024 0918 Local FLAG LEGEND: L-Low Normal,H-High Normal,LL-Alert Low,HH-Alert High <-Panic Low,>-Panic High,A-Abnormal,AA-Critical Abnormal Performed at: 01 =Z [facility], [place] [address] Rodri Bahena MD, Performed at: [address], [place], [place] [id number] MD Rodri Bahena MD Phone: [phone]
--- NOTE | 2024-10-25 13:25 | DI.US.S_ITS ---
PROCEDURE: US FINE NEEDLE ASPIRATION INDICATIONS: Protocol from thyroid US TECHNIQUE: The indications, alternatives, benefits, risks, and complications of the procedure were explained to the patient. Written informed consent was obtained and placed in the chart. The thyroid region was examined sonographically and a site was chosen for ultrasound guided percutaneous sampling. The skin was prepared and draped in the usual fashion, and anesthetized with 1% lidocaine infiltrated from the skin down to the thyroid gland. Multiple passes were then performed, with contents emptied into an appropriate pathology specimen container. A bandage was applied to the area of access at completion of the study. COMPARISON: None. FINDINGS: Location(s) of lesion(s) sampled: Lower pole left thyroid lobe nodule. [place]: 25 gauge hypodermic needles. Number of passes: 6 Medications: 1% lidocaine for local anaesthesia. Complications: None. IMPRESSION: Successful ultrasound-guided thyroid nodule fine needle aspiration, with cytology results pending. Please see chart below for management recommendations based on cytology results. [facility] ReportingRecommendationsNon-diagnostic* Repeat US-guided FNA, with on-site cytology evaluation if possible. * Repeated non-diagnostic nodules without high suspicion US features: close observation vs surgical consult. * Consider surgery if nodule has high suspicion US features, grows >20% in 2 dimensions on followup, or patient has clinical risk factors for malignancy. Benign* If nodule has high suspicion US features: repeat US and FNA within 12 months. * If nodule has low to intermediate suspicion US features: repeat US at 12-24 months. If nodule grows (20% increase in at least 2 dimensions, with minimal increase of 2 mm or >50% change in volume), or development of new suspicious US features, then repeat FNA or continue followup. * If nodule has very low suspicion US features: followup US at >24 months. Atypia of undetermined significance, follicular lesion of undetermined significanceRepeat FNA, molecular testing, followup US, or surgical consult.Follicular neoplasm, suspicious for follicular neoplasmSurgical consult; also consider molecular testing. Suspicious for malignancySurgical consult.MalignantSurgical consult. Dictated by: Wellington Faustin M.D. on 11/26/2024 at 9:12 Approved by: Wellington Faustin M.D. on 11/26/2024 at 9:12
== END ==
LOC: US 13:25
PROVIDERS: PCP Registered Nurse Diabetes Educator; Referring Provider Registered Nurse Diabetes Educator; Visit Provider Registered Nurse Diabetes Educator
DX: E04.1 Nontoxic single thyroid nodule (principal)
CPT/HCPCS: 10005